=== PATIENT | female | born 1960 | race Caucasian/White ===

== ENCOUNTER 2022-06-27 11:43 | Inpatient (IN) ==
[2022-06-27] MEDS ORDERED: NS 0.9% 1000 ml BAG 1,000 ML IV ONE ×2 (12:42→13:24)
[2022-06-27 13:19] LABS: ABS Monocytes 0.6 10^3/ul (0-0.8); ABS Neutrophils 8.4 10^3/ul (1.5-7.7); Eosinophil % 0.2 %; Hematocrit 38 % (35-47); Hemoglobin 12.5 g/dL (12.0-16.0); Lymphocyte % 9.9 %; Mean Corpuscular HGB Conc 33 g/dL (31-36); Mean Corpuscular Hemoglobin 34 pg (27-31); Mean Corpuscular Volume 103 fL (80-97); Mean Platelet Volume 7.8 fL (7.4-10.4); Platelet Count 522 10^3/uL (150-450); Red Blood Count 3.72 10^6 /uL (3.70-4.87); Red Cell Distribution Width 13 % (10-15); White Blood Count 9.9 10^3/uL (3.5-10.8)
[2022-06-27 13:51] LABS: ALT 17 U/L (7-52); Alkaline Phosphatase 100 U/L (35-149); Anion Gap 12 mmol/L (2-11); Blood Urea Nitrogen 63 mg/dL (6-24); C Reactive Protein 3.89 mg/L (<8.01); CO2 Carbon Dioxide 18 mmol/L (22-32); Calcium 8.7 mg/dL (8.6-10.3); Chloride 98 mmol/L (101-111); Globulin 2.9 g/dL (2-4); Glucose 123 mg/dL (70-100); Lipase 60 U/L (11.0-82.0); Sodium 128 mmol/L (135-145); Total Protein 5.9 g/dL (6.4-8.9); eGFR CKD-EPI 13.2 (>60)
[2022-06-27 15:03] LABS: Urine Appearance Clear; Urine Bilirubin Negative (Negative); Urine Blood Negative (Negative); Urine Color Yellow; Urine Glucose Negative (Negative); Urine Ketones Negative (Negative); Urine Nitrite Negative (Negative); Urine Protein Negative (Negative); Urine Specific Gravity 1.005 (1.002-1.030); Urine Urobilinogen Negative (Negative)
[2022-06-27] MEDS ORDERED: Ondansetron 4 mg VIAL 2 MG/ML 2 ml VIAL IV PRN (16:34)
[2022-06-27] MEDS ORDERED: Thiamine 100 MG/ML 2 ml VIAL (200 mg) IM ONE (16:37)
[2022-06-27] MEDS: NS 0.9% 1000 ml BAG 1,000 ML IV SCH (16:38)
[2022-06-27] MEDS ORDERED: metroNIDAZOLE IV 500 MG/100ML 500 MG/100 ML BAG IVPB SCH (17:00)
[2022-06-27] MEDS ORDERED: Thiamine 100 MG/ML 2 ml VIAL 100 MG, Folic Acid IV 1 MG, Multiple Vitamin IV ADULT 10 M... IV ONE ×2 (17:03→17:21)
[2022-06-27 17:52] LABS: Magnesium 2.1 mg/dL (1.9-2.7)
[2022-06-27] MEDS: Multivitamins/Minerals TAB PO SCH (17:53)
[2022-06-27 18:30] LABS: INR 1.02 (0.88-1.18)
[2022-06-27] MEDS: Heparin 5000 UNITS/ML 1 mL VIAL SUBCUT SCH (22:07)
[2022-06-28] MEDS: metroNIDAZOLE IV 500 MG/100ML 500 MG/100 ML BAG IVPB SCH ×3 (02:24→17:45)
[2022-06-28] MEDS: NS 0.9% 1000 ml BAG 1,000 ML IV SCH (02:24)
[2022-06-28] MEDS: Heparin 5000 UNITS/ML 1 mL VIAL SUBCUT SCH ×3 (05:50→21:36)
[2022-06-28 06:39] LABS: Calcium 7.8 mg/dL (8.6-10.3); Creatinine, Serum 1.77 mg/dL (0.51-0.95); Magnesium 2.1 mg/dL (1.9-2.7); Phosphorus 3.6 mg/dL (2.5-5.0); eGFR CKD-EPI 31.9 (>60)
[2022-06-28] MEDS: Multivitamins/Minerals TAB PO SCH (09:52)
[2022-06-28] MEDS: Lactated Ringers 1000 ml BAG 1,000 ML IV SCH ×2 (12:11→21:40)
[2022-06-29] MEDS: metroNIDAZOLE IV 500 MG/100ML 500 MG/100 ML BAG IVPB SCH ×2 (01:48→10:11)
[2022-06-29] MEDS: Heparin 5000 UNITS/ML 1 mL VIAL SUBCUT SCH (06:19)
[2022-06-29 06:41] LABS: Creatinine, Serum 0.98 mg/dL (0.51-0.95); Potassium 3.9 mmol/L (3.5-5.0); eGFR CKD-EPI 64.9 (>60)
[2022-06-29] MEDS: Multivitamins/Minerals TAB PO SCH (10:16)
[2022-06-29 10:38] VITALS: BP 111/74
== END 2022-06-29 12:00 | disposition home or self-care (01) | DRG 683 ==
LOC: EDHOLD 11:43 → ED 11:43 → OBSVTOIN 16:32 → MED 18:19
PROVIDERS: ADMIT Internal Medicine; ATTEND Internal Medicine

== ENCOUNTER 2022-07-26 13:49 | Inpatient (IN) ==
[2022-07-26 17:16] LABS: ABS Lymphocytes 1.6 10^3/ul (1.0-4.8); ABS Monocytes 0.9 10^3/ul (0-0.8); ABS Neutrophils 6.3 10^3/ul (1.5-7.7); Eosinophil % 0.2 %; Hematocrit 35 % (35-47); Hemoglobin 11.2 g/dL (12.0-16.0); Lymphocyte % 17.9 %; Mean Corpuscular Hemoglobin 33 pg (27-31); Mean Corpuscular Hgb Conc 33 g/dL (31-36); Mean Corpuscular Volume 102 fL (80-97); Mean Platelet Volume 7.4 fL (7.4-10.4); Platelet Count 515 10^3/uL (150-450); Red Blood Count 3.37 10^6 /uL (3.70-4.87); Red Cell Distribution Width 14 % (10-15); White Blood Count 8.8 10^3/uL (3.5-10.8)
[2022-07-26 17:33] LABS: ALT 17 U/L (7-52); AST 32 U/L (13-39); Albumin 3.4 g/dL (3.2-5.2); Albumin/Globulin Ratio 1.1 (1-3); Alkaline Phosphatase 110 U/L (35-149); Anion Gap 9 mmol/L (2-11); Blood Urea Nitrogen 11 mg/dL (6-24); C Reactive Protein 9.09 mg/L (<8.01); CO2 Carbon Dioxide 26 mmol/L (22-32); Calcium 8.8 mg/dL (8.6-10.3); Chloride 99 mmol/L (101-111); Creatinine, Serum 0.92 mg/dL (0.51-0.95); Globulin 3.1 g/dL (2-4); Glucose 116 mg/dL (70-100); Potassium 3.9 mmol/L (3.5-5.0); Sodium 134 mmol/L (135-145); Total Protein 6.5 g/dL (6.4-8.9)
[2022-07-26] MEDS ORDERED: Iohexol 300 (CONTRAST) 10 ML SDV IV ONE (17:55)
[2022-07-26 21:13] LABS: Magnesium 1.8 mg/dL (1.9-2.7)
[2022-07-26] MEDS ORDERED: Magnesium Sulfate 2 gm BAG 2 GM/50 ML BAG IVPB ONE (21:18)
[2022-07-26] MEDS ORDERED: NS 0.9% 1000 ml BAG 1,000 ML IV SCH (21:30)
[2022-07-26 22:03] LABS: Alcohol, S < 13 mg/dL (<13); Lipase 14 U/L (11.0-82.0)
[2022-07-27 04:56] LABS: Vitamin B12 302 pg/mL (180-914)
[2022-07-27 06:27] LABS: Hematocrit 28 % (35-47); Hemoglobin 9.8 g/dL (12.0-16.0); Mean Corpuscular Hemoglobin 36 pg (27-31); Mean Corpuscular Hgb Conc 35 g/dL (31-36); Mean Corpuscular Volume 103 fL (80-97); Mean Platelet Volume 7.6 fL (7.4-10.4); Platelet Count 358 10^3/uL (150-450); Red Blood Count 2.76 10^6 /uL (3.70-4.87); Red Cell Distribution Width 14 % (10-15)
[2022-07-27 06:30] LABS: ABS Eosinophils 0.1 10^3/ul (0-0.6); ABS Lymphocytes 1.1 10^3/ul (1.0-4.8); ABS Monocytes 0.7 10^3/ul (0-0.8); ABS Neutrophils 5.1 10^3/ul (1.5-7.7); Eosinophil % 0.8 %; Lymphocyte % 15.2 %
[2022-07-27 07:11] LABS: Calcium 8.2 mg/dL (8.6-10.3); Creatinine, Serum 0.75 mg/dL (0.51-0.95); Magnesium 2.2 mg/dL (1.9-2.7); Potassium 3.6 mmol/L (3.5-5.0); eGFR CKD-EPI 89.4 (>60)
[2022-07-27] MEDS ORDERED: Omeprazole 20 mg CAP (NF) PO SCH (09:00)
[2022-07-27] MEDS ORDERED: Lactated Ringers 1000 ml BAG 1,000 ML IV ONE (13:35)
[2022-07-27] MEDS ORDERED: PEG 3000 GI LAVAGE 1 GALLON PO ONE (13:52)
[2022-07-27] MEDS: Ondansetron 4 mg VIAL 2 MG/ML 2 ml VIAL IV PRN ×2 (16:15→23:04)
[2022-07-27] MEDS: Enoxaparin 40 MG/0.4 ML SYR SUBCUT SCH (18:11)
[2022-07-27] MEDS: Pantoprazole VIAL 40 MG VIAL IV SCH (18:11)
[2022-07-27] MEDS: Morphine 2 MG/ML SYRINGE IV PRN (23:04)
[2022-07-28 00:11] LABS: INR 1.15 (0.88-1.18)
[2022-07-28 06:13] LABS: ABS Lymphocytes 1.2 10^3/ul (1.0-4.8); ABS Monocytes 0.8 10^3/ul (0-0.8); ABS Neutrophils 6.2 10^3/ul (1.5-7.7); Eosinophil % 0.5 %; Hematocrit 30 % (35-47); Hemoglobin 10.2 g/dL (12.0-16.0); Lymphocyte % 14.5 %; Mean Corpuscular Hemoglobin 34 pg (27-31); Mean Corpuscular Hgb Conc 34 g/dL (31-36); Mean Corpuscular Volume 101 fL (80-97); Mean Platelet Volume 7.8 fL (7.4-10.4); Platelet Count 372 10^3/uL (150-450); Red Blood Count 2.99 10^6 /uL (3.70-4.87); Red Cell Distribution Width 14 % (10-15); White Blood Count 8.3 10^3/uL (3.5-10.8)
[2022-07-28 06:38] LABS: Calcium 8.2 mg/dL (8.6-10.3); Creatinine, Serum 0.8 mg/dL (0.51-0.95); Magnesium 1.9 mg/dL (1.9-2.7); eGFR CKD-EPI 82.7 (>60)
[2022-07-28] MEDS: Morphine 2 MG/ML SYRINGE IV PRN ×2 (07:41→17:03)
[2022-07-28] MEDS: Ondansetron 4 mg VIAL 2 MG/ML 2 ml VIAL IV PRN ×2 (07:41→17:03)
[2022-07-28] MEDS ORDERED: PEG 3000 GI LAVAGE 1 GALLON PO ONE (10:05)
[2022-07-28] MEDS ORDERED: Dextrose 50% Syringe 50 ml 25 GM/50 ML SYRINGE IV PUSH PRN (10:11)
[2022-07-28] MEDS: Enoxaparin 40 MG/0.4 ML SYR SUBCUT SCH (17:03)
[2022-07-28] MEDS: Pantoprazole VIAL 40 MG VIAL IV SCH (17:03)
[2022-07-28] MEDS: Lactated Ringers 1000 ml BAG 1,000 ML IV SCH (22:32)
[2022-07-29 05:56] LABS: ABS Lymphocytes 1.3 10^3/ul (1.0-4.8); ABS Monocytes 0.7 10^3/ul (0-0.8); ABS Neutrophils 5.6 10^3/ul (1.5-7.7); Eosinophil % 0.6 %; Hematocrit 28 % (35-47); Hemoglobin 9.6 g/dL (12.0-16.0); Mean Corpuscular Hemoglobin 34 pg (27-31); Mean Corpuscular Hgb Conc 34 g/dL (31-36); Mean Corpuscular Volume 101 fL (80-97); Platelet Count 354 10^3/uL (150-450); Red Cell Distribution Width 14 % (10-15); White Blood Count 7.6 10^3/uL (3.5-10.8)
[2022-07-29 06:13] LABS: Calcium 7.9 mg/dL (8.6-10.3); Creatinine, Serum 0.84 mg/dL (0.51-0.95); Magnesium 1.7 mg/dL (1.9-2.7); Potassium 3.5 mmol/L (3.5-5.0)
[2022-07-29] MEDS: Lactated Ringers 1000 ml BAG 1,000 ML IV SCH ×2 (06:33→19:45)
[2022-07-29] MEDS: Morphine 2 MG/ML SYRINGE IV PRN ×2 (10:54→18:35)
[2022-07-29] MEDS: Ondansetron 4 mg VIAL 2 MG/ML 2 ml VIAL IV PRN (10:54)
[2022-07-29] MEDS ORDERED: Magnesium Sulfate 2 gm BAG 2 GM/50 ML BAG IVPB ONE (12:07)
[2022-07-29] MEDS ORDERED: Propofol 10 MG/ML 20 ML BTL ONE (15:43)
[2022-07-29] MEDS ORDERED: Lidocaine 2% PF 5 ML VIAL ONE (15:43)
[2022-07-29] MEDS: Enoxaparin 40 MG/0.4 ML SYR SUBCUT SCH (18:20)
[2022-07-29] MEDS: Pantoprazole VIAL 40 MG VIAL IV SCH (18:21)
[2022-07-30] MEDS: Morphine 2 MG/ML SYRINGE IV PRN ×4 (02:25→21:01)
[2022-07-30] MEDS: Lactated Ringers 1000 ml BAG 1,000 ML IV SCH (03:48)
[2022-07-30 06:06] LABS: ABS Eosinophils 0.1 10^3/ul (0-0.6); ABS Lymphocytes 1.3 10^3/ul (1.0-4.8); ABS Monocytes 0.8 10^3/ul (0-0.8); ABS Neutrophils 6.4 10^3/ul (1.5-7.7); Eosinophil % 0.6 %; Hematocrit 32 % (35-47); Hemoglobin 10.6 g/dL (12.0-16.0); Lymphocyte % 15.6 %; Mean Corpuscular Hemoglobin 34 pg (27-31); Mean Corpuscular Hgb Conc 33 g/dL (31-36); Mean Corpuscular Volume 102 fL (80-97); Nucleated Red Blood Cells % 0.1; Platelet Count 376 10^3/uL (150-450); Red Blood Count 3.17 10^6 /uL (3.70-4.87); Red Cell Distribution Width 14 % (10-15); White Blood Count 8.5 10^3/uL (3.5-10.8)
[2022-07-30 06:34] LABS: Albumin 2.7 g/dL (3.2-5.2); Albumin/Globulin Ratio 1.1 (1-3); Calcium 8.3 mg/dL (8.6-10.3); Creatinine, Serum 0.83 mg/dL (0.51-0.95); Globulin 2.5 g/dL (2-4); Magnesium 1.8 mg/dL (1.9-2.7); Potassium 3.7 mmol/L (3.5-5.0); Total Bilirubin 0.9 mg/dL (0.2-1.0); Total Protein 5.2 g/dL (6.4-8.9); eGFR CKD-EPI 79.2 (>60)
[2022-07-30] MEDS ORDERED: Magnesium Sulfate IV 1GM/100ML 1 GM/100 ML BAG IV ONE ×2 (07:04→07:45)
[2022-07-30] MEDS ORDERED: Lactated Ringers 1000 ml BAG 1,000 ML IV SCH ×2 (08:00→08:01)
[2022-07-30] MEDS: Pantoprazole VIAL 40 MG VIAL IV SCH (16:13)
[2022-07-30] MEDS: Enoxaparin 40 MG/0.4 ML SYR SUBCUT SCH (16:13)
[2022-07-31 06:20] LABS: ABS Eosinophils 0.1 10^3/uL (0.0-0.5); ABS Lymphocytes 0.7 10^3/uL (1.0-4.8); ABS Monocytes 1.1 10^3/uL (0.0-0.9); ABS Neutrophils 9.1 10^3/uL (1.5-7.6); Eosinophil % 0.5 %; Hematocrit 27.9 % (35-45); Hemoglobin 9.6 g/dL (11.5-14.3); Lymphocyte % 6.2 %; Mean Corpuscular Hemoglobin 34.9 pg (27-33); Mean Corpuscular Hgb Conc 34.5 g/dL (31-36); Mean Corpuscular Volume 101.1 fL (80-97); Mean Platelet Volume 7.9 fL (7.5-11.2); Platelet Count 305 10^3/uL (150-450); Red Blood Count 2.76 10^6/uL (3.63-4.92); Red Cell Distribution Width 13.9 % (12-17)
[2022-07-31 06:46] LABS: Calcium 7.9 mg/dL (8.6-10.3); Creatinine, Serum 0.77 mg/dL (0.51-0.95); Magnesium 1.7 mg/dL (1.9-2.7); Potassium 3.5 mmol/L (3.5-5.0); eGFR CKD-EPI 86.6 (>60)
[2022-07-31] MEDS: Morphine 2 MG/ML SYRINGE IV PRN ×5 (07:32→23:14)
[2022-07-31] MEDS: Enoxaparin 40 MG/0.4 ML SYR SUBCUT SCH (14:38)
[2022-07-31] MEDS: Pantoprazole VIAL 40 MG VIAL IV SCH (17:16)
[2022-07-31 17:58] LABS: Carcinoembryonic Antigen 1.8 ng/mL (0.1-5.0)
[2022-08-01] MEDS: Lactated Ringers 1000 ml BAG 1,000 ML IV SCH ×2 (00:17→23:11)
[2022-08-01] MEDS ORDERED: Lactated Ringers 1000 ml BAG 1,000 ML IV SCH (06:00)
[2022-08-01] MEDS ORDERED: Buffered Lidocaine 1% SYRIN 1 ml INTRADERM ONE (06:00)
[2022-08-01] MEDS: Morphine 2 MG/ML SYRINGE IV PRN ×3 (06:16→20:14)
[2022-08-01 06:28] LABS: Activated Partial Thrombo Time 32.2 seconds (26.0-38.0); INR 1.33 (0.88-1.18)
[2022-08-01] MEDS ORDERED: Ertapenem 1 GM in NS 0.9% 50 ML IVPB ONE (13:30)
[2022-08-01] MEDS ORDERED: Bupivacaine 0.5% SDV PF 30ML VIAL ONE (13:41)
[2022-08-01] MEDS ORDERED: fentaNYL 250 mcg/5 ml 50 MCG/ML 5 ml VIAL (250 MCG) ONE (14:01)
[2022-08-01] MEDS ORDERED: Propofol 10 MG/ML 20 ML BTL ONE (14:01)
[2022-08-01] MEDS ORDERED: Rocuronium 50 mg VIAL 10 mg/ml 5 ml VIAL (50 mg) ONE ×2 (14:01→15:10)
[2022-08-01] MEDS ORDERED: ceFAZolin VIAL VIAL ONE (14:38)
[2022-08-01] MEDS ORDERED: Phenylephrine IV 10 MG/ML 1 ml VIAL ONE (16:06)
[2022-08-01] MEDS ORDERED: Albumin Human 25% 25 GM/100 ML BTL IV ONE (17:11)
[2022-08-01] MEDS ORDERED: Calcium CHLORIDE 10% SYRINGE 1 GM/10 ML ONE (17:37)
[2022-08-01] MEDS ORDERED: Naloxone 0.4 mg VIAL 0.4 mg/ml 1 ml VIAL IV PUSH PRN (19:54)
[2022-08-01] MEDS ORDERED: Zosyn per Pharmacy NOTE FOLLOW UP PRN (19:56)
[2022-08-01] MEDS ORDERED: ZOSYN 3.375 GM x ONE DOSE over 30 miuntes IV (20:00)
[2022-08-01] MEDS ORDERED: Morphine 4 MG/ML VIAL (1 ml) ONE (20:13)
[2022-08-01] MEDS: Morphine PCA ADULT 5 MG/ML 30 ML PCA SCH (20:37)
[2022-08-01 20:52] LABS: Hematocrit 28.3 % (35-45); Hemoglobin 9.3 g/dL (11.5-14.3); Mean Corpuscular Hgb Conc 32.9 g/dL (31-36); Mean Corpuscular Volume 103.5 fL (80-97); Mean Platelet Volume 7.5 fL (7.5-11.2); Platelet Count 376 10^3/uL (150-450); Red Blood Count 2.74 10^6/uL (3.63-4.92); Red Cell Distribution Width 13.9 % (12-17); White Blood Count 2.4 10^3/uL (3.8-11.8)
[2022-08-01 20:58] LABS: INR 1.79 (0.88-1.18)
[2022-08-01 21:14] LABS: Calcium 8.5 mg/dL (8.6-10.3); Creatinine, Serum 0.78 mg/dL (0.51-0.95); Magnesium 1.1 mg/dL (1.9-2.7); Potassium 2.8 mmol/L (3.5-5.0); eGFR CKD-EPI 85.3 (>60)
[2022-08-01] MEDS ORDERED: Magnesium Sulf 4 GM/100 ML IV 4,000 MG/100 ML BAG IVPB ONE (21:50)
[2022-08-01] MEDS ORDERED: KCL 20 MEQ/100 ML IVPREMIX 20 MEQ/100 ML BAG IV SCH (22:00)
[2022-08-01 22:13] LABS: Phosphorus 4.3 mg/dL (2.5-5.0)
[2022-08-01 23:05] LABS: ABS Lymphocytes 0.3 10^3/uL (1.0-4.8); ABS Monocytes 0.3 10^3/uL (0.0-0.9); ABS Neutrophils 1.4 10^3/uL (1.5-7.6); ABS Nucleated RBC 0.01 10^3/ul; Hematocrit 28.7 % (35-45); Hemoglobin 9.5 g/dL (11.5-14.3); Lymphocyte % 15.1 %; Mean Corpuscular Hemoglobin 34.3 pg (27-33); Mean Corpuscular Hgb Conc 33.2 g/dL (31-36); Mean Corpuscular Volume 103.5 fL (80-97); Mean Platelet Volume 8.2 fL (7.5-11.2); Nucleated Red Blood Cells % 0.3 /100 WBC (0.0-0.4); Platelet Count 290 10^3/uL (150-450); Red Blood Count 2.78 10^6/uL (3.63-4.92); Red Cell Distribution Width 13.9 % (12-17)
[2022-08-01] MEDS: Enoxaparin 40 MG/0.4 ML SYR SUBCUT SCH (23:14)
[2022-08-01 23:43] LABS: Blood Urea Nitrogen 6 mg/dL (6-24); CO2 Carbon Dioxide 21 mmol/L (22-32); Calcium 8.3 mg/dL (8.6-10.3); Chloride 108 mmol/L (101-111); Creatinine, Serum 0.75 mg/dL (0.51-0.95); Glucose 151 mg/dL (70-100); Sodium 140 mmol/L (135-145); eGFR CKD-EPI 89.4 (>60)
[2022-08-01] MEDS: Pantoprazole VIAL 40 MG VIAL IV SCH (23:51)
[2022-08-02] MEDS ORDERED: PHENYLEPHRINE DRIP IVPREMIX 50 MG/250 ML BAG IV SCH
[2022-08-02 00:03] LABS: Anion Gap 11 mmol/L (2-11)
[2022-08-02] MEDS ORDERED: ZOSYN 3.375 GM x ONE DOSE over 30 miuntes IV (01:00)
[2022-08-02] MEDS: Acetaminophen IV 1 GM/100ML 1,000 MG/100 ML BAG IV PRN (01:07)
[2022-08-02 01:42] LABS: Magnesium 1.1 mg/dL (1.9-2.7); Phosphorus 4.3 mg/dL (2.5-5.0); Potassium Redraw 3.2 mmol/L (3.5-5.0)
[2022-08-02] MEDS ORDERED: Magnesium Sulf 4 GM/100 ML IV 4,000 MG/100 ML BAG IVPB ONE (01:45)
[2022-08-02] MEDS: KCL 20 MEQ/100 ML IVPREMIX 20 MEQ/100 ML BAG IV SCH ×2 (02:24→04:44)
[2022-08-02] MEDS: Phenylephrine DRIP 0.2 MG/ML in NS 0.9% 250 ML (PHA mix) IV SCH ×2 (03:30→21:03)
[2022-08-02] MEDS ORDERED: Lactated Ringers 1000 ml BAG 500 ML IV ONE (04:53)
[2022-08-02] MEDS: ZOSYN 3.375 GM Q8H per EXTENDED INFUSION IV SCH ×3 (05:52→22:09)
[2022-08-02 09:36] LABS: Hematocrit 24.7 % (35-45); Hemoglobin 8.5 g/dL (11.5-14.3); Mean Corpuscular Hgb Conc 34.4 g/dL (31-36); Mean Corpuscular Volume 101.8 fL (80-97); Mean Platelet Volume 8.2 fL (7.5-11.2); Platelet Count 370 10^3/uL (150-450); Red Blood Count 2.43 10^6/uL (3.63-4.92); Red Cell Distribution Width 14.1 % (12-17); White Blood Count 10.8 10^3/uL (3.8-11.8)
[2022-08-02 10:04] LABS: Albumin/Globulin Ratio 1.3 (1-3); Calcium 7.7 mg/dL (8.6-10.3); Creatinine, Serum 1.14 mg/dL (0.51-0.95); Globulin 1.6 g/dL (2-4); Magnesium 2.3 mg/dL (1.9-2.7); Potassium 3.6 mmol/L (3.5-5.0); Total Bilirubin 1.1 mg/dL (0.2-1.0); Total Protein 3.6 g/dL (6.4-8.9); eGFR CKD-EPI 54.1 (>60)
[2022-08-02] MEDS ORDERED: Morphine 2 MG/ML SYRINGE IV ONE (10:17)
[2022-08-02] MEDS: Lactated Ringers 1000 ml BAG 1,000 ML IV SCH ×2 (10:34→11:45)
[2022-08-02] MEDS: Thiamine 100 MG/ML 2 ml VIAL 100 MG in NS 0.9% 50 ML 50 ML IV SCH (10:46)
[2022-08-02 10:51] LABS: ABS Lymphocytes 0.6 10^3/uL (1.0-4.8); ABS Monocytes 0.5 10^3/uL (0.0-0.9); ABS Neutrophils 9.7 10^3/uL (1.5-7.6); ABS Nucleated RBC 0.01 10^3/ul; Lymphocyte % 5.2 %; Macrocytosis 1+; Polychromasia 1+
[2022-08-02 15:46] LABS: Calcium 7.8 mg/dL (8.6-10.3); Creatinine, Serum 1.23 mg/dL (0.51-0.95); Magnesium 2.1 mg/dL (1.9-2.7); Potassium 3.7 mmol/L (3.5-5.0); eGFR CKD-EPI 49.4 (>60)
[2022-08-02] MEDS: Enoxaparin 40 MG/0.4 ML SYR SUBCUT SCH (15:49)
[2022-08-02] MEDS ORDERED: Lactated Ringers 1000 ml BAG 1,000 ML IV ONE (15:55)
[2022-08-02] MEDS: Pantoprazole VIAL 40 MG VIAL IV SCH (17:12)
[2022-08-03 04:32] LABS: ABS Lymphocytes 0.9 10^3/uL (1.0-4.8); ABS Monocytes 1.2 10^3/uL (0.0-0.9); ABS Neutrophils 19.8 10^3/uL (1.5-7.6); ABS Nucleated RBC 0.01 10^3/ul; Eosinophil % 0.1 %; Hematocrit 20.2 % (35-45); Hemoglobin 6.9 g/dL (11.5-14.3); Lymphocyte % 4.1 %; Mean Corpuscular Hemoglobin 34.1 pg (27-33); Mean Corpuscular Hgb Conc 33.9 g/dL (31-36); Mean Corpuscular Volume 100.7 fL (80-97); Mean Platelet Volume 7.8 fL (7.5-11.2); Platelet Count 318 10^3/uL (150-450); Red Blood Count 2.01 10^6/uL (3.63-4.92); White Blood Count 21.9 10^3/uL (3.8-11.8)
[2022-08-03 04:57] LABS: Calcium 7.3 mg/dL (8.6-10.3); Creatinine, Serum 1.46 mg/dL (0.51-0.95); Magnesium 1.9 mg/dL (1.9-2.7); Potassium 3.7 mmol/L (3.5-5.0); eGFR CKD-EPI 40.2 (>60)
[2022-08-03] MEDS: ZOSYN 3.375 GM Q8H per EXTENDED INFUSION IV SCH ×3 (05:57→22:12)
[2022-08-03] MEDS: Morphine PCA ADULT 5 MG/ML 30 ML PCA SCH (07:14)
[2022-08-03] MEDS ORDERED: HYDROmorphone 1 MG/1 ML SYRINGE IV ONE (07:38)
[2022-08-03] MEDS ORDERED: Lactated Ringers 1000 ml BAG 1,000 ML IV ONE ×4 (08:20→15:10)
[2022-08-03 08:56] LABS: INR 1.82 (0.88-1.18)
[2022-08-03] MEDS ORDERED: Phytonadione IV (Adult) 5 MG in NS 0.9% 50 ML 50 ML IV ONE (10:19)
[2022-08-03 11:10] LABS: Albumin 1.8 g/dL (3.2-5.2); Albumin/Globulin Ratio 1.3 (1-3); Globulin 1.4 g/dL (2-4); Total Protein 3.2 g/dL (6.4-8.9)
[2022-08-03] MEDS: Thiamine 100 MG/ML 2 ml VIAL 100 MG in NS 0.9% 50 ML 50 ML IV SCH (11:41)
[2022-08-03 13:00] LABS: Hematocrit 29.3 % (35-45); Mean Corpuscular Hemoglobin 31.7 pg (27-33); Mean Corpuscular Hgb Conc 34.1 g/dL (31-36); Mean Corpuscular Volume 92.8 fL (80-97); Mean Platelet Volume 7.5 fL (7.5-11.2); Platelet Count 326 10^3/uL (150-450); Red Blood Count 3.15 10^6/uL (3.63-4.92); Red Cell Distribution Width 21.9 % (12-17); White Blood Count 1.6 10^3/uL (3.8-11.8)
[2022-08-03 13:40] LABS: RBC Morphology Normal (Normal)
[2022-08-03 13:41] LABS: ABS Lymphocytes 0.2 10^3/uL (1.0-4.8); ABS Monocytes 0.1 10^3/uL (0.0-0.9); ABS Neutrophils 1.2 10^3/uL (1.5-7.6); Eosinophil % 0.1 %; Lymphocyte % 15.6 %; Nucleated Red Blood Cells % 0.2 /100 WBC (0.0-0.4)
[2022-08-03] MEDS ORDERED: Iodixanol (CONTRAST) 320 MG/ML 100 ML SDV IV ONE (14:10)
[2022-08-03] MEDS: Albumin Human 25% 50 GM/200 ML BTL IV SCH ×2 (14:48→20:44)
[2022-08-03] MEDS: Enoxaparin 40 MG/0.4 ML SYR SUBCUT SCH (15:34)
[2022-08-03] MEDS: Pantoprazole VIAL 40 MG VIAL IV SCH (16:18)
[2022-08-03 17:53] LABS: Hematocrit 22.4 % (35-45); Hemoglobin 7.7 g/dL (11.5-14.3); Mean Corpuscular Hemoglobin 31.7 pg (27-33); Mean Corpuscular Hgb Conc 34.3 g/dL (31-36); Mean Corpuscular Volume 92.6 fL (80-97); Mean Platelet Volume 7.6 fL (7.5-11.2); Platelet Count 220 10^3/uL (150-450); Red Blood Count 2.42 10^6/uL (3.63-4.92); White Blood Count 1.9 10^3/uL (3.8-11.8)
[2022-08-03] MEDS: HYDROmorphone 1 MG/1 ML SYRINGE IV SLOW PU PRN (20:42)
[2022-08-04 01:29] LABS: Hematocrit 20.7 % (35-45); Hemoglobin 6.9 g/dL (11.5-14.3); Mean Corpuscular Hemoglobin 30.4 pg (27-33); Mean Corpuscular Hgb Conc 33.6 g/dL (31-36); Mean Corpuscular Volume 90.4 fL (80-97); Mean Platelet Volume 7.4 fL (7.5-11.2); Platelet Count 193 10^3/uL (150-450); Red Blood Count 2.29 10^6/uL (3.63-4.92); Red Cell Distribution Width 23.2 % (12-17); White Blood Count 4.6 10^3/uL (3.8-11.8)
[2022-08-04 03:45] LABS: ABS Lymphocytes 0.3 10^3/uL (1.0-4.8); ABS Monocytes 0.1 10^3/uL (0.0-0.9); ABS Neutrophils 4.2 10^3/uL (1.5-7.6); Anisocytosis 2+; Eosinophil % 0.1 %; Nucleated Red Blood Cells % 0.1 /100 WBC (0.0-0.4); Polychromasia 1+
[2022-08-04] MEDS: HYDROmorphone 1 MG/1 ML SYRINGE IV SLOW PU PRN (04:28)
[2022-08-04 09:45] LABS: Hematocrit 27.5 % (35-45); Hemoglobin 9.5 g/dL (11.5-14.3); Mean Corpuscular Hemoglobin 30.7 pg (27-33); Mean Corpuscular Hgb Conc 34.4 g/dL (31-36); Mean Corpuscular Volume 89.2 fL (80-97); Mean Platelet Volume 7.8 fL (7.5-11.2); Platelet Count 221 10^3/uL (150-450); Red Blood Count 3.08 10^6/uL (3.63-4.92); Red Cell Distribution Width 23.2 % (12-17); White Blood Count 11.5 10^3/uL (3.8-11.8)
[2022-08-04] MEDS: Albumin Human 25% 50 GM/200 ML BTL IV SCH ×3 (10:02→19:56)
[2022-08-04] MEDS: Acetaminophen IV 1 GM/100ML 1,000 MG/100 ML BAG IV PRN (10:03)
[2022-08-04 10:20] LABS: Albumin/Globulin Ratio 3.3 (1-3); Calcium 7.9 mg/dL (8.6-10.3); Creatinine, Serum 1.58 mg/dL (0.51-0.95); Globulin 0.9 g/dL (2-4); Potassium 3.3 mmol/L (3.5-5.0); Total Bilirubin 4.1 mg/dL (0.2-1.0); Total Protein 3.9 g/dL (6.4-8.9); eGFR CKD-EPI 36.6 (>60)
[2022-08-04] MEDS ORDERED: Dextrose 50% Syringe 50 ml 25 GM/50 ML SYRINGE IV PUSH PRN (10:39)
[2022-08-04] MEDS ORDERED: Potassium Chloride LIQUID 20 MEQ/15 ML LIQUID PO ONE (10:40)
[2022-08-04] MEDS ORDERED: Magnesium Sulfate IV 1GM/100ML 1 GM/100 ML BAG IV ONE (10:40)
[2022-08-04] MEDS: D10W IV FLUID 250 ML IV PRN ×2 (10:40→22:15)
[2022-08-04] MEDS ORDERED: HYDROmorphone 1 MG/1 ML SYRINGE IV SLOW PU PRN (10:58)
[2022-08-04] MEDS ORDERED: HYDROmorphone 0.5 MG/0.5 ML SYRINGE ONE (11:00)
[2022-08-04 11:08] LABS: Burr Cells 1+; Polychromasia 1+; Tear Drop Cells 1+
[2022-08-04 11:09] LABS: Anisocytosis 2+; Dohle Bodies Present
[2022-08-04 11:10] LABS: ABS Lymphocytes 0.3 10^3/uL (1.0-4.8); ABS Monocytes 0.2 10^3/uL (0.0-0.9); ABS Nucleated RBC 0.01 10^3/ul; Eosinophil % 0.2 %; Nucleated Red Blood Cells % 0.1 /100 WBC (0.0-0.4)
[2022-08-04 11:16] LABS: Magnesium 1.8 mg/dL (1.9-2.7)
[2022-08-04] MEDS: Thiamine 100 MG/ML 2 ml VIAL 100 MG in NS 0.9% 50 ML 50 ML IV SCH (11:28)
[2022-08-04] MEDS: KCL 20 MEQ/100 ML IVPREMIX 20 MEQ/100 ML BAG IV SCH ×2 (12:06→14:20)
[2022-08-04 12:54] LABS: Activated Partial Thrombo Time 61.1 seconds (26.0-38.0); INR 1.53 (0.88-1.18)
[2022-08-04] MEDS ORDERED: Lorazepam PYXIS KEY PRN (13:29)
[2022-08-04] MEDS ORDERED: LORazepam 2 mg VIAL 1 ml IV PUSH SCH (14:00)
[2022-08-04] MEDS: Enoxaparin 40 MG/0.4 ML SYR SUBCUT SCH (14:27)
[2022-08-04] MEDS ORDERED: Furosemide 20 mg/2 ml IV VIAL IV ONE (14:43)
[2022-08-04] MEDS: Pantoprazole VIAL 40 MG VIAL IV SCH (15:53)
[2022-08-04] MEDS: HYDROmorphone 0.5 MG/0.5 ML SYRINGE IV SLOW PU PRN ×2 (17:31→20:17)
[2022-08-04] MEDS ORDERED: Furosemide 40 mg/4 ml IV VIAL IV SLOW PU ONE (21:00)
[2022-08-04] MEDS ORDERED: Albuterol/Ipratropium NEB.SOL (2.5/0.5 MG) 3 ML NEB.SOLN INH PRN (22:22)
[2022-08-05] MEDS ORDERED: Acetylcysteine INHALATION SOL 200 MG/ML NEB.SOLN 10 ML INH ONE (00:11)
[2022-08-05] MEDS: Acetylcysteine INH SOL (RT) 200 MG/ML 4 ML VIAL INH ONE ×2 (01:15→01:16)
[2022-08-05] MEDS ORDERED: Furosemide 40 mg/4 ml IV VIAL IV SLOW PU ONE (01:36)
[2022-08-05] MEDS: Furosemide 40 mg/4 ml IV VIAL ONE ×2 (01:47→02:01)
[2022-08-05 04:24] LABS: Hemoglobin 8.3 g/dL (11.5-14.3); Mean Corpuscular Hemoglobin 30.6 pg (27-33); Mean Corpuscular Hgb Conc 34.6 g/dL (31-36); Mean Corpuscular Volume 88.6 fL (80-97); Mean Platelet Volume 7.7 fL (7.5-11.2); Platelet Count 159 10^3/uL (150-450); Red Blood Count 2.71 10^6/uL (3.63-4.92); Red Cell Distribution Width 23.8 % (12-17); White Blood Count 10.4 10^3/uL (3.8-11.8)
[2022-08-05 04:45] LABS: ABS Lymphocytes 0.4 10^3/uL (1.0-4.8); ABS Neutrophils 9.9 10^3/uL (1.5-7.6); ABS Nucleated RBC 0.01 10^3/ul; Anisocytosis 2+; Eosinophil % 0.3 %; Lymphocyte % 3.6 %; Nucleated Red Blood Cells % 0.1 /100 WBC (0.0-0.4)
[2022-08-05 04:46] LABS: Polychromasia 1+
[2022-08-05 05:16] LABS: Albumin 4.1 g/dL (3.2-5.2); Albumin/Globulin Ratio 5.9 (1-3); Calcium 8.5 mg/dL (8.6-10.3); Creatinine, Serum 1.7 mg/dL (0.51-0.95); Globulin 0.7 g/dL (2-4); Phosphorus 2.9 mg/dL (2.5-5.0); Potassium 2.9 mmol/L (3.5-5.0); Total Bilirubin 3.6 mg/dL (0.2-1.0); Total Protein 4.8 g/dL (6.4-8.9); eGFR CKD-EPI 33.5 (>60)
[2022-08-05] MEDS ORDERED: D5W NS 0.9% 40Meq KCL 1000 ml 1,000 ML IV SCH (06:00)
[2022-08-05] MEDS: Thiamine 100 MG/ML 2 ml VIAL 100 MG in NS 0.9% 50 ML 50 ML IV SCH (09:20)
[2022-08-05] MEDS: KCL 20 MEQ/100 ML IVPREMIX 20 MEQ/100 ML BAG IV SCH ×5 (09:20→17:25)
[2022-08-05] MEDS: Albumin Human 25% 50 GM/200 ML BTL IV SCH (09:24)
[2022-08-05] MEDS: HYDROmorphone 0.5 MG/0.5 ML SYRINGE IV SLOW PU PRN (09:27)
[2022-08-05] MEDS ORDERED: Potassium Chlor 20 meq TAB.ER PO ONE (12:01)
[2022-08-05 12:26] LABS: Hematocrit 25.3 % (35-45); Hemoglobin 8.7 g/dL (11.5-14.3)
[2022-08-05] MEDS ORDERED: Furosemide 40 mg/4 ml IV VIAL IV ONE (12:33)
[2022-08-05] MEDS ORDERED: Morphine 4 MG/ML VIAL (1 ml) ONE (12:41)
[2022-08-05 13:05] LABS: Calcium 8.8 mg/dL (8.6-10.3); Creatinine, Serum 1.74 mg/dL (0.51-0.95); Magnesium 1.9 mg/dL (1.9-2.7); Potassium 3.4 mmol/L (3.5-5.0); eGFR CKD-EPI 32.6 (>60)
[2022-08-05] MEDS: Enoxaparin 30 MG/0.3 ML SYR SUBCUT SCH (13:43)
[2022-08-05] MEDS ORDERED: Magnesium Sulfate 2 gm BAG 2 GM/50 ML BAG IVPB ONE (15:26)
[2022-08-05] MEDS ORDERED: Furosemide 100 mg/10 ml IV VIAL IV ONE (15:45)
[2022-08-05] MEDS: Pantoprazole VIAL 40 MG VIAL IV SCH (15:57)
[2022-08-05] MEDS ORDERED: Bumetanide IV 0.25 MG/ML 4 ml VIAL (1 mg) IV SLOW PU SCH (16:00)
[2022-08-05] MEDS: TPN 24 HR with Dextrose 50% Water 500 ML, Amino Acid Infusion 10% 850 ML, Sterile Water... CENT\\PICC SCH (16:05)
[2022-08-05] MEDS ORDERED: KCL 20 MEQ/100 ML IVPREMIX 20 MEQ/100 ML BAG ONE (16:07)
[2022-08-05] MEDS ORDERED: Bumetanide IV 0.25 MG/ML 4 ml VIAL (1 mg) ONE ×2 (16:07→16:09)
[2022-08-05] MEDS ORDERED: Bumetanide IV 0.25 MG/ML 4 ml VIAL (1 mg) IV SLOW PU ONE (16:08)
[2022-08-05] MEDS ORDERED: TPN 24 HR with Dextrose 50% Water 500 ML, Amino Acid Infusion 10% 850 ML, Sterile Water... CENT\\PICC SCH (17:00)
[2022-08-05] MEDS: Bumetanide IV 10 MG in Premix IV 0 ML IV SCH (18:35)
[2022-08-06] MEDS: HYDROmorphone 0.5 MG/0.5 ML SYRINGE IV SLOW PU PRN ×3 (00:43→17:50)
[2022-08-06 03:30] LABS: Calcium 9.1 mg/dL (8.6-10.3); Creatinine, Serum 1.72 mg/dL (0.51-0.95); Potassium 3.5 mmol/L (3.5-5.0)
[2022-08-06] MEDS: Bumetanide IV 10 MG in Premix IV 0 ML IV SCH ×2 (04:07→16:37)
[2022-08-06 04:12] LABS: Hematocrit 28.7 % (35-45); Hemoglobin 9.8 g/dL (11.5-14.3); Mean Corpuscular Hemoglobin 29.9 pg (27-33); Mean Corpuscular Volume 87.9 fL (80-97); Mean Platelet Volume 8.1 fL (7.5-11.2); Platelet Count 138 10^3/uL (150-450); Red Blood Count 3.26 10^6/uL (3.63-4.92); Red Cell Distribution Width 23.5 % (12-17); White Blood Count 14.5 10^3/uL (3.8-11.8)
[2022-08-06 04:28] LABS: ABS Eosinophils 0.1 10^3/uL (0.0-0.5); ABS Lymphocytes 0.5 10^3/uL (1.0-4.8); ABS Monocytes 0.1 10^3/uL (0.0-0.9); ABS Neutrophils 13.8 10^3/uL (1.5-7.6); ABS Nucleated RBC 0.03 10^3/ul; Eosinophil % 0.6 %; Lymphocyte % 3.4 %; Nucleated Red Blood Cells % 0.2 /100 WBC (0.0-0.4)
[2022-08-06 04:56] LABS: ALT 7 U/L (7-52); AST 17 U/L (13-39); Albumin 3.9 g/dL (3.2-5.2); Albumin/Globulin Ratio 3.5 (1-3); Alkaline Phosphatase 48 U/L (35-149); Anion Gap 9 mmol/L (2-11); Blood Urea Nitrogen 13 mg/dL (6-24); CO2 Carbon Dioxide 23 mmol/L (22-32); Calcium 9.2 mg/dL (8.6-10.3); Chloride 111 mmol/L (101-111); Cholesterol 55 mg/dL; Globulin 1.1 g/dL (2-4); Glucose 163 mg/dL (70-100); Magnesium 2.2 mg/dL (1.9-2.7); Phosphorus 1.6 mg/dL (2.5-5.0); Potassium 3.4 mmol/L (3.5-5.0); Prealbumin < 3 mg/dL (18-38); Sodium 143 mmol/L (135-145); Triglycerides 163 mg/dL; eGFR CKD-EPI 33.5 (>60)
[2022-08-06] MEDS ORDERED: Haloperidol 5 mg/ml SDV IV/IM 5 MG/ML AMP ONE (05:22)
[2022-08-06] MEDS ORDERED: Haloperidol 5 mg/ml SDV IV/IM 5 MG/ML AMP IV SLOW PU ONE (05:31)
[2022-08-06] MEDS ORDERED: Potassium Phosphate IV 15 MMOL in NS 0.9% 250 ml 250 ML IVPB ONE (05:36)
[2022-08-06] MEDS: Thiamine 100 MG/ML 2 ml VIAL 100 MG in NS 0.9% 50 ML 50 ML IV SCH (07:50)
[2022-08-06] MEDS ORDERED: Piperacillin/Tazobac ADVAN 3.375 GM in NS 0.9% 100 ml BAG 100 ML IV ONE ×2 (09:52→09:59)
[2022-08-06] MEDS ORDERED: Zosyn per Pharmacy NOTE FOLLOW UP SCH ×2 (10:00)
[2022-08-06] MEDS ORDERED: LORazepam 2 mg VIAL 1 ml IV PUSH ONE (12:48)
[2022-08-06] MEDS ORDERED: Lorazepam PYXIS KEY PRN (12:48)
[2022-08-06] MEDS ORDERED: LORazepam 2 mg VIAL 1 ml ONE (12:50)
[2022-08-06] MEDS ORDERED: Lorazepam PYXIS KEY ONE (12:50)
[2022-08-06] MEDS: Enoxaparin 30 MG/0.3 ML SYR SUBCUT SCH (13:32)
[2022-08-06] MEDS: Albumin Human 25% 25 GM/100 ML BTL IV SCH (13:35)
[2022-08-06] MEDS: ZOSYN 3.375 GM Q8H per EXTENDED INFUSION IV SCH (16:42)
[2022-08-06] MEDS: Pantoprazole VIAL 40 MG VIAL IV SCH (16:43)
[2022-08-06] MEDS: TPN 24 HR with Dextrose 50% Water 500 ML, Amino Acid Infusion 10% 850 ML, Sterile Water... CENT\\PICC SCH (16:50)
[2022-08-06 17:50] LABS: ALT 8 U/L (7-52); AST 22 U/L (13-39); Albumin 3.9 g/dL (3.2-5.2); Albumin/Globulin Ratio 3.5 (1-3); Alkaline Phosphatase 59 U/L (35-149); Anion Gap 9 mmol/L (2-11); Blood Urea Nitrogen 15 mg/dL (6-24); CO2 Carbon Dioxide 25 mmol/L (22-32); Calcium 9.5 mg/dL (8.6-10.3); Chloride 111 mmol/L (101-111); Cholesterol 58 mg/dL; Creatinine, Serum 1.76 mg/dL (0.51-0.95); Globulin 1.1 g/dL (2-4); Glucose 142 mg/dL (70-100); Magnesium 1.9 mg/dL (1.9-2.7); Phosphorus 2.1 mg/dL (2.5-5.0); Potassium 3.2 mmol/L (3.5-5.0); Prealbumin < 3 mg/dL (18-38); Sodium 145 mmol/L (135-145); Triglycerides 172 mg/dL; eGFR CKD-EPI 32.1 (>60)
[2022-08-06] MEDS: KCL 20 MEQ/100 ML IVPREMIX 20 MEQ/100 ML BAG IV SCH ×2 (18:30→21:19)
[2022-08-06] MEDS: LORazepam 2 mg VIAL 1 ml IV PUSH SCH ×2 (18:35→21:25)
[2022-08-06 20:37] LABS: Calcium 9.3 mg/dL (8.6-10.3); Creatinine, Serum 1.78 mg/dL (0.51-0.95); Magnesium 1.8 mg/dL (1.9-2.7); Potassium 3.4 mmol/L (3.5-5.0); eGFR CKD-EPI 31.7 (>60)
[2022-08-06] MEDS ORDERED: Thiamine 100 MG/ML 2 ml VIAL 500 MG in NS 0.9% 50 ML 50 ML IV SCH (21:00)
[2022-08-06] MEDS: Thiamine IV 500 MG in NS 0.9% 250 ML (Wernicke-Korsakoff) IV SCH (21:19)
[2022-08-06] MEDS ORDERED: LORazepam 2 mg VIAL 1 ml IV PUSH SCH (21:28)
[2022-08-07] MEDS: KCL 20 MEQ/100 ML IVPREMIX 20 MEQ/100 ML BAG IV SCH (00:11)
[2022-08-07] MEDS: Bumetanide IV 10 MG in Premix IV 0 ML IV SCH (00:12)
[2022-08-07] MEDS: ZOSYN 3.375 GM Q8H per EXTENDED INFUSION IV SCH ×4 (00:17→23:23)
[2022-08-07] MEDS: HYDROmorphone 0.5 MG/0.5 ML SYRINGE IV SLOW PU PRN (01:47)
[2022-08-07 04:32] LABS: ABS Basophils 0.1 10^3/uL (0.0-0.1); ABS Eosinophils 0.2 10^3/uL (0.0-0.5); ABS Lymphocytes 1.2 10^3/uL (1.0-4.8); ABS Monocytes 0.4 10^3/uL (0.0-0.9); ABS Neutrophils 13.2 10^3/uL (1.5-7.6); ABS Nucleated RBC 0.06 10^3/ul; Eosinophil % 1.1 %; Hematocrit 25.3 % (35-45); Hemoglobin 8.5 g/dL (11.5-14.3); Lymphocyte % 8.1 %; Mean Corpuscular Hemoglobin 29.7 pg (27-33); Mean Corpuscular Hgb Conc 33.6 g/dL (31-36); Mean Corpuscular Volume 88.5 fL (80-97); Mean Platelet Volume 8.4 fL (7.5-11.2); Nucleated Red Blood Cells % 0.4 /100 WBC (0.0-0.4); Platelet Count 72 10^3/uL (150-450); Red Blood Count 2.86 10^6/uL (3.63-4.92); Red Cell Distribution Width 23.3 % (12-17); White Blood Count 15.1 10^3/uL (3.8-11.8)
[2022-08-07 05:09] LABS: PCO2 Arterial 30 mmHg (35-45); PO2 Arterial 66 mmHg (80-100)
[2022-08-07 05:44] LABS: Albumin 3.4 g/dL (3.2-5.2); Albumin/Globulin Ratio 2.4 (1-3); Calcium 9.3 mg/dL (8.6-10.3); Creatinine, Serum 1.73 mg/dL (0.51-0.95); Globulin 1.4 g/dL (2-4); Magnesium 1.7 mg/dL (1.9-2.7); Phosphorus 1.5 mg/dL (2.5-5.0); Potassium 3.3 mmol/L (3.5-5.0); Total Bilirubin 4.5 mg/dL (0.2-1.0); Total Protein 4.8 g/dL (6.4-8.9); eGFR CKD-EPI 32.8 (>60)
[2022-08-07] MEDS ORDERED: Potassium Phosphate IV 15 MMOL in NS 0.9% 250 ml 250 ML IVPB ONE (06:16)
[2022-08-07] MEDS: Albumin Human 25% 25 GM/100 ML BTL IV SCH (09:16)
[2022-08-07 09:30] LABS: Hematocrit 28.8 % (35-45); Hemoglobin 9.5 g/dL (11.5-14.3); Mean Corpuscular Hemoglobin 29.4 pg (27-33); Mean Corpuscular Volume 89.3 fL (80-97); Red Blood Count 3.23 10^6/uL (3.63-4.92); Red Cell Distribution Width 23.1 % (12-17); White Blood Count 16.9 10^3/uL (3.8-11.8)
[2022-08-07 10:18] LABS: Mean Platelet Volume 8.9 fL (7.5-11.2); Platelet Count 84 10^3/uL (150-450)
[2022-08-07] MEDS: Thiamine IV 500 MG in NS 0.9% 250 ML (Wernicke-Korsakoff) IV SCH ×3 (10:19→20:24)
[2022-08-07 10:23] LABS: Anisocytosis 2+; Polychromasia 1+
[2022-08-07 10:24] LABS: ABS Eosinophils 0.6 10^3/uL (0.0-0.5); ABS Lymphocytes 1.3 10^3/uL (1.0-4.8); ABS Monocytes 0.5 10^3/uL (0.0-0.9); ABS Neutrophils 14.5 10^3/uL (1.5-7.6); Eosinophil % 3.5 %; Lymphocyte % 7.6 %; Nucleated Red Blood Cells % 0.6 /100 WBC (0.0-0.4)
[2022-08-07] MEDS: Acetaminophen IV 1 GM/100ML 1,000 MG/100 ML BAG IV PRN ×2 (15:15→23:21)
[2022-08-07] MEDS: TPN 24 HR with Dextrose 50% Water 500 ML, Amino Acid Infusion 10% 850 ML, Sterile Water... CENT\\PICC SCH (17:10)
[2022-08-07] MEDS: Pantoprazole VIAL 40 MG VIAL IV SCH (18:06)
[2022-08-07] MEDS: Morphine 4 MG/ML VIAL (1 ml) IV PRN (20:06)
[2022-08-08] MEDS: Morphine 4 MG/ML VIAL (1 ml) IV PRN ×4 (02:28→19:48)
[2022-08-08 04:25] LABS: Hematocrit 28.4 % (35-45); Hemoglobin 9.1 g/dL (11.5-14.3); Mean Corpuscular Hemoglobin 29.9 pg (27-33); Mean Corpuscular Hgb Conc 32.2 g/dL (31-36); Mean Corpuscular Volume 92.9 fL (80-97); Mean Platelet Volume 8.9 fL (7.5-11.2); Platelet Count 62 10^3/uL (150-450); Red Blood Count 3.06 10^6/uL (3.63-4.92); Red Cell Distribution Width 23.2 % (12-17); White Blood Count 22.4 10^3/uL (3.8-11.8)
[2022-08-08 04:48] LABS: Calcium 8.7 mg/dL (8.6-10.3); Creatinine, Serum 1.8 mg/dL (0.51-0.95); Magnesium 1.5 mg/dL (1.9-2.7); Phosphorus 2.5 mg/dL (2.5-5.0); eGFR CKD-EPI 31.3 (>60)
[2022-08-08 04:49] LABS: Anisocytosis 2+
[2022-08-08 04:50] LABS: ABS Eosinophils 0.1 10^3/uL (0.0-0.5); ABS Monocytes 0.7 10^3/uL (0.0-0.9); ABS Neutrophils 20.6 10^3/uL (1.5-7.6); ABS Nucleated RBC 0.08 10^3/ul; Eosinophil % 0.4 %; Lymphocyte % 4.5 %; Nucleated Red Blood Cells % 0.4 /100 WBC (0.0-0.4); Platelet Morphology Large
[2022-08-08 04:51] LABS: Potassium 2.7 mmol/L (3.5-5.0)
[2022-08-08] MEDS ORDERED: Magnesium Sulfate IV 3 GM in NS 0.9% 100 ml BAG 100 ML IVPB ONE (05:01)
[2022-08-08 05:46] LABS: Albumin/Globulin Ratio 2.1 (1-3); Globulin 1.4 g/dL (2-4); Total Bilirubin 4.7 mg/dL (0.2-1.0); Total Protein 4.4 g/dL (6.4-8.9)
[2022-08-08] MEDS: KCL 20 MEQ/100 ML IVPREMIX 20 MEQ/100 ML BAG IV SCH ×5 (06:16→19:46)
[2022-08-08] MEDS: ZOSYN 3.375 GM Q8H per EXTENDED INFUSION IV SCH ×3 (07:58→23:20)
[2022-08-08] MEDS: Albumin Human 25% 25 GM/100 ML BTL IV SCH (08:43)
[2022-08-08] MEDS: Thiamine IV 500 MG in NS 0.9% 250 ML (Wernicke-Korsakoff) IV SCH ×3 (08:43→21:15)
[2022-08-08 15:50] LABS: Calcium 9.2 mg/dL (8.6-10.3); Creatinine, Serum 1.84 mg/dL (0.51-0.95); Magnesium 2.1 mg/dL (1.9-2.7); Potassium 3.3 mmol/L (3.5-5.0); eGFR CKD-EPI 30.5 (>60)
[2022-08-08] MEDS ORDERED: Anidulafungin 200 MG in NS 0.9% 250 ml 200 ML IVPB ONE (16:37)
[2022-08-08] MEDS: Pantoprazole VIAL 40 MG VIAL IV SCH (17:08)
[2022-08-08] MEDS: TPN 24 HR with Dextrose 50% Water 500 ML, Amino Acid Infusion 10% 850 ML, Sterile Water... CENT\\PICC SCH (17:29)
[2022-08-09] MEDS: Morphine 4 MG/ML VIAL (1 ml) IV PRN ×5 (04:07→21:37)
[2022-08-09 04:32] LABS: Hematocrit 29.1 % (35-45); Hemoglobin 9.6 g/dL (11.5-14.3); Mean Corpuscular Hemoglobin 29.9 pg (27-33); Mean Corpuscular Hgb Conc 33.1 g/dL (31-36); Mean Corpuscular Volume 90.3 fL (80-97); Mean Platelet Volume 9.8 fL (7.5-11.2); Platelet Count 79 10^3/uL (150-450); Red Blood Count 3.22 10^6/uL (3.63-4.92); Red Cell Distribution Width 22.4 % (12-17); White Blood Count 31.8 10^3/uL (3.8-11.8)
[2022-08-09 04:50] LABS: Albumin 3.3 g/dL (3.2-5.2); Albumin/Globulin Ratio 1.8 (1-3); Calcium 8.9 mg/dL (8.6-10.3); Creatinine, Serum 1.75 mg/dL (0.51-0.95); Globulin 1.8 g/dL (2-4); Magnesium 1.8 mg/dL (1.9-2.7); Phosphorus 2.6 mg/dL (2.5-5.0); Potassium 3.3 mmol/L (3.5-5.0); Total Bilirubin 3.8 mg/dL (0.2-1.0); Total Protein 5.1 g/dL (6.4-8.9); eGFR CKD-EPI 32.3 (>60)
[2022-08-09 04:52] LABS: ABS Basophils 0.1 10^3/uL (0.0-0.1); ABS Eosinophils 0.1 10^3/uL (0.0-0.5); ABS Lymphocytes 0.8 10^3/uL (1.0-4.8); ABS Monocytes 0.7 10^3/uL (0.0-0.9); ABS Neutrophils 30.1 10^3/uL (1.5-7.6); ABS Nucleated RBC 0.16 10^3/ul; Eosinophil % 0.5 %; Lymphocyte % 2.5 %; Nucleated Red Blood Cells % 0.5 /100 WBC (0.0-0.4)
[2022-08-09] MEDS ORDERED: Magnesium Sulfate 2 gm BAG 2 GM/50 ML BAG IVPB ONE (05:15)
[2022-08-09] MEDS: KCL 20 MEQ/100 ML IVPREMIX 20 MEQ/100 ML BAG IV SCH ×3 (06:15→10:35)
[2022-08-09] MEDS: ZOSYN 3.375 GM Q8H per EXTENDED INFUSION IV SCH ×2 (08:01→16:30)
[2022-08-09] MEDS: Acetaminophen IV 1 GM/100ML 1,000 MG/100 ML BAG IV PRN ×2 (08:10→21:45)
[2022-08-09] MEDS: Albumin Human 25% 25 GM/100 ML BTL IV SCH (10:08)
[2022-08-09] MEDS: Thiamine IV 500 MG in NS 0.9% 250 ML (Wernicke-Korsakoff) IV SCH ×3 (10:34→21:23)
[2022-08-09] MEDS: Linezolid 600 MG IVPREMIX(*) 600 MG/300 ML BAG IVPB SCH (11:57)
[2022-08-09 12:29] LABS: ALT 12 U/L (7-52); Albumin 3.7 g/dL (3.2-5.2); Albumin/Globulin Ratio 2.2 (1-3); Alkaline Phosphatase 323 U/L (35-149); Blood Urea Nitrogen 36 mg/dL (6-24); CO2 Carbon Dioxide 29 mmol/L (22-32); Calcium 8.9 mg/dL (8.6-10.3); Chloride 113 mmol/L (101-111); Cholesterol 74 mg/dL; Creatinine, Serum 1.74 mg/dL (0.51-0.95); Globulin 1.7 g/dL (2-4); Glucose 174 mg/dL (70-100); Magnesium 2.4 mg/dL (1.9-2.7); Prealbumin 4 mg/dL (18-38); Sodium 150 mmol/L (135-145); Total Protein 5.4 g/dL (6.4-8.9); Triglycerides 219 mg/dL; eGFR CKD-EPI 32.6 (>60)
[2022-08-09 12:33] LABS: Anion Gap 8 mmol/L (2-16)
[2022-08-09 15:25] LABS: Phosphorus 3.5 mg/dL (2.5-5.0); Potassium Redraw 3.7 mmol/L (3.5-5.0)
[2022-08-09] MEDS: Anidulafungin 100 MG in NS 0.9% 100 ml BAG 100 ML IVPB SCH (17:40)
[2022-08-09] MEDS: Pantoprazole VIAL 40 MG VIAL IV SCH (18:13)
[2022-08-09] MEDS ORDERED: Dextrose 50% Syringe 50 ml 25 GM/50 ML SYRINGE IV PUSH PRN (18:56)
[2022-08-10] MEDS: ZOSYN 3.375 GM Q8H per EXTENDED INFUSION IV SCH ×4 (00:11→23:19)
[2022-08-10] MEDS: Linezolid 600 MG IVPREMIX(*) 600 MG/300 ML BAG IVPB SCH ×2 (00:17→12:30)
[2022-08-10] MEDS: Morphine 4 MG/ML VIAL (1 ml) IV PRN ×2 (01:37→06:12)
[2022-08-10 04:48] LABS: Hematocrit 25.2 % (35-45); Mean Corpuscular Hemoglobin 29.3 pg (27-33); Mean Corpuscular Hgb Conc 31.8 g/dL (31-36); Mean Corpuscular Volume 92.1 fL (80-97); Mean Platelet Volume 9.8 fL (7.5-11.2); Platelet Count 113 10^3/uL (150-450); Red Blood Count 2.74 10^6/uL (3.63-4.92); Red Cell Distribution Width 22.8 % (12-17); White Blood Count 37.1 10^3/uL (3.8-11.8)
[2022-08-10 05:34] LABS: Albumin 2.9 g/dL (3.2-5.2); Albumin/Globulin Ratio 1.5 (1-3); Calcium 8.2 mg/dL (8.6-10.3); Creatinine, Serum 1.81 mg/dL (0.51-0.95); Globulin 1.9 g/dL (2-4); Phosphorus 4.6 mg/dL (2.5-5.0); Potassium 3.9 mmol/L (3.5-5.0); Total Bilirubin 2.8 mg/dL (0.2-1.0); Total Protein 4.8 g/dL (6.4-8.9); eGFR CKD-EPI 31.1 (>60)
[2022-08-10 05:42] LABS: Anisocytosis 2+; Hypochromasia 1+; Platelet Morphology Large
[2022-08-10 05:43] LABS: ABS Basophils 0.2 10^3/uL (0.0-0.1); ABS Eosinophils 0.3 10^3/uL (0.0-0.5); ABS Lymphocytes 0.7 10^3/uL (1.0-4.8); ABS Monocytes 0.6 10^3/uL (0.0-0.9); ABS Neutrophils 35.4 10^3/uL (1.5-7.6); ABS Nucleated RBC 0.03 10^3/ul; Eosinophil % 0.7 %; Lymphocyte % 1.8 %; Nucleated Red Blood Cells % 0.1 /100 WBC (0.0-0.4)
[2022-08-10] MEDS ORDERED: Lactated Ringers 1000 ml BAG 1,000 ML IV ONE (07:37)
[2022-08-10] MEDS ORDERED: Iodixanol (CONTRAST) 320 MG/ML 100 ML SDV IV ONE (08:10)
[2022-08-10] MEDS: Thiamine IV 500 MG in NS 0.9% 250 ML (Wernicke-Korsakoff) IV SCH ×3 (09:16→20:18)
[2022-08-10] MEDS: Albumin Human 25% 25 GM/100 ML BTL IV SCH (09:18)
[2022-08-10] MEDS ORDERED: Lidocaine 1% VIAL 10 MG/ML VIAL 30 ML ONE (10:56)
[2022-08-10] MEDS ORDERED: Succinylcholine 200 mg VIAL 20 mg/ml 10 ml VIAL (200 mg) ONE (11:21)
[2022-08-10] MEDS ORDERED: Rocuronium 50 mg VIAL 10 mg/ml 5 ml VIAL (50 mg) ONE ×2 (11:22→11:59)
[2022-08-10] MEDS ORDERED: Propofol 10 mg/ml 100 ML BTL 1,000 MG/100 ML BTL ONE (11:35)
[2022-08-10] MEDS ORDERED: Etomidate 40 mg/20 ml (2 MG/ML) 20 ml VIAL (40 mg) ONE (11:59)
[2022-08-10] MEDS ORDERED: Norepinephrine 16MCG/ML BAGD5W 4,000 MCG/250 ML BAG IV ONE (12:03)
[2022-08-10] MEDS: Norepinephrine 16MCG/ML BAGD5W 4,000 MCG/250 ML BAG IV SCH (12:05)
[2022-08-10] MEDS: Propofol 10 mg/ml 100 ML BTL 1,000 MG/100 ML BTL IV SCH (12:10)
[2022-08-10] MEDS: Pantoprazole VIAL 40 MG VIAL IV SCH (17:47)
[2022-08-10] MEDS: Anidulafungin 100 MG in NS 0.9% 100 ml BAG 100 ML IVPB SCH (17:47)
[2022-08-10 20:38] LABS: Body Fluid Appearance Cloudy; Body Fluid Color Amber; Body Fluid Source Peritonial Fluid
[2022-08-10] MEDS: Chlorhexidine MOUTHWASH 0.12% 15 ML UDC TOPICAL SCH ×2 (21:37→21:38)
[2022-08-10 21:49] LABS: Body Fluid WBC 10331 /mcL
[2022-08-10 22:26] LABS: Body Fluid Mono 10 %; Body Fluid Other Cells 48; Body Fluid Total Cells Counted 200
[2022-08-11] MEDS: Linezolid 600 MG IVPREMIX(*) 600 MG/300 ML BAG IVPB SCH ×2 (00:09→13:40)
[2022-08-11] MEDS: Morphine 4 MG/ML VIAL (1 ml) IV PRN ×2 (00:20→05:40)
[2022-08-11] MEDS: Propofol 10 mg/ml 100 ML BTL 1,000 MG/100 ML BTL IV SCH (00:20)
[2022-08-11] MEDS: Chlorhexidine MOUTHWASH 0.12% 15 ML UDC TOPICAL SCH ×6 (02:47→22:40)
[2022-08-11 05:10] LABS: Hematocrit 23.3 % (35-45); Hemoglobin 7.5 g/dL (11.5-14.3); Mean Corpuscular Hemoglobin 29.5 pg (27-33); Mean Corpuscular Hgb Conc 32.2 g/dL (31-36); Mean Corpuscular Volume 91.7 fL (80-97); Mean Platelet Volume 9.9 fL (7.5-11.2); Platelet Count 162 10^3/uL (150-450); Red Blood Count 2.54 10^6/uL (3.63-4.92); Red Cell Distribution Width 22.2 % (12-17); White Blood Count 34.7 10^3/uL (3.8-11.8)
[2022-08-11 05:28] LABS: ABS Eosinophils 0.4 10^3/uL (0.0-0.5); ABS Lymphocytes 0.5 10^3/uL (1.0-4.8); ABS Monocytes 0.5 10^3/uL (0.0-0.9); ABS Neutrophils 33.3 10^3/uL (1.5-7.6); ABS Nucleated RBC 0.05 10^3/ul; Anisocytosis 2+; Lymphocyte % 1.5 %; Nucleated Red Blood Cells % 0.1 /100 WBC (0.0-0.4); Polychromasia 1+
[2022-08-11 05:55] LABS: Albumin 2.9 g/dL (3.2-5.2); Albumin/Globulin Ratio 1.5 (1-3); Creatinine, Serum 1.76 mg/dL (0.51-0.95); Globulin 1.9 g/dL (2-4); Magnesium 1.6 mg/dL (1.9-2.7); Phosphorus 3.3 mg/dL (2.5-5.0); Potassium 3.5 mmol/L (3.5-5.0); Total Bilirubin 2.7 mg/dL (0.2-1.0); Total Protein 4.8 g/dL (6.4-8.9); eGFR CKD-EPI 32.1 (>60)
[2022-08-11] MEDS: Albumin Human 25% 25 GM/100 ML BTL IV SCH (08:10)
[2022-08-11] MEDS: ZOSYN 3.375 GM Q8H per EXTENDED INFUSION IV SCH ×3 (08:10→22:40)
[2022-08-11] MEDS: Thiamine IV 500 MG in NS 0.9% 250 ML (Wernicke-Korsakoff) IV SCH ×2 (09:47→16:02)
[2022-08-11] MEDS: Pantoprazole VIAL 40 MG VIAL IV SCH (19:04)
[2022-08-12] MEDS: Linezolid 600 MG IVPREMIX(*) 600 MG/300 ML BAG IVPB SCH ×2 (01:15→12:57)
[2022-08-12] MEDS: Chlorhexidine MOUTHWASH 0.12% 15 ML UDC TOPICAL SCH ×6 (02:17→23:00)
[2022-08-12 04:33] LABS: Hematocrit 28.8 % (35-45); Hemoglobin 9.5 g/dL (11.5-14.3); Mean Corpuscular Hemoglobin 29.3 pg (27-33); Mean Corpuscular Hgb Conc 33.1 g/dL (31-36); Mean Corpuscular Volume 88.5 fL (80-97); Mean Platelet Volume 9.4 fL (7.5-11.2); Platelet Count 225 10^3/uL (150-450); Red Blood Count 3.26 10^6/uL (3.63-4.92); Red Cell Distribution Width 20.9 % (12-17); White Blood Count 33.5 10^3/uL (3.8-11.8)
[2022-08-12 04:51] LABS: ABS Lymphocytes 0.5 10^3/uL (1.0-4.8); ABS Monocytes 0.5 10^3/uL (0.0-0.9); ABS Neutrophils 32.4 10^3/uL (1.5-7.6); ABS Nucleated RBC 0.06 10^3/ul; Eosinophil % 0.1 %; Lymphocyte % 1.4 %; Nucleated Red Blood Cells % 0.2 /100 WBC (0.0-0.4)
[2022-08-12 05:20] LABS: Albumin/Globulin Ratio 1.3 (1-3); Calcium 7.9 mg/dL (8.6-10.3); Creatinine, Serum 1.76 mg/dL (0.51-0.95); Globulin 2.3 g/dL (2-4); Magnesium 1.6 mg/dL (1.9-2.7); Phosphorus 3.1 mg/dL (2.5-5.0); Potassium 3.5 mmol/L (3.5-5.0); Total Protein 5.3 g/dL (6.4-8.9); eGFR CKD-EPI 32.1 (>60)
[2022-08-12] MEDS ORDERED: Magnesium Sulfate IV 3 GM in NS 0.9% 100 ml BAG 100 ML IVPB ONE (06:02)
[2022-08-12] MEDS: ZOSYN 3.375 GM Q8H per EXTENDED INFUSION IV SCH ×2 (08:02→17:25)
[2022-08-12] MEDS: Albumin Human 25% 25 GM/100 ML BTL IV SCH (09:13)
[2022-08-12] MEDS: Acetaminophen IV 1 GM/100ML 1,000 MG/100 ML BAG IV PRN ×2 (09:25→21:08)
[2022-08-12] MEDS ORDERED: Heparin 5000 UNITS/ML 1 mL VIAL SUBCUT SCH (14:00)
[2022-08-12] MEDS ORDERED: Furosemide 40 mg/4 ml IV VIAL IV SLOW PU ONE (16:08)
[2022-08-12] MEDS: Pantoprazole VIAL 40 MG VIAL IV SCH (17:48)
[2022-08-12 23:50] LABS: Creatinine, Serum 1.83 mg/dL (0.51-0.95); Magnesium 2.1 mg/dL (1.9-2.7); Potassium 3.2 mmol/L (3.5-5.0); eGFR CKD-EPI 30.7 (>60)
[2022-08-13] MEDS ORDERED: KCL 20 MEQ/100 ML IVPREMIX 20 MEQ/100 ML BAG IV ONE (00:22)
[2022-08-13] MEDS ORDERED: Potassium Chloride LIQUID 20 MEQ/15 ML LIQUID PO ONE (00:22)
[2022-08-13] MEDS: Linezolid 600 MG IVPREMIX(*) 600 MG/300 ML BAG IVPB SCH ×3 (01:25→23:58)
[2022-08-13] MEDS: Chlorhexidine MOUTHWASH 0.12% 15 ML UDC TOPICAL SCH ×6 (01:52→22:10)
[2022-08-13 05:52] LABS: Hematocrit 26.5 % (35-45); Hemoglobin 8.7 g/dL (11.5-14.3); Mean Corpuscular Hemoglobin 29.9 pg (27-33); Mean Corpuscular Hgb Conc 32.7 g/dL (31-36); Mean Corpuscular Volume 91.5 fL (80-97); Mean Platelet Volume 9.3 fL (7.5-11.2); Platelet Count 223 10^3/uL (150-450); Red Blood Count 2.89 10^6/uL (3.63-4.92); Red Cell Distribution Width 20.4 % (12-17); White Blood Count 26.4 10^3/uL (3.8-11.8)
[2022-08-13 05:55] LABS: ABS Lymphocytes 0.4 10^3/uL (1.0-4.8); ABS Monocytes 0.3 10^3/uL (0.0-0.9); ABS Neutrophils 25.6 10^3/uL (1.5-7.6); ABS Nucleated RBC 0.02 10^3/ul; Eosinophil % 0.2 %; Lymphocyte % 1.5 %; Nucleated Red Blood Cells % 0.1 /100 WBC (0.0-0.4)
[2022-08-13 06:41] LABS: Albumin/Globulin Ratio 1.3 (1-3); Calcium 7.9 mg/dL (8.6-10.3); Creatinine, Serum 1.74 mg/dL (0.51-0.95); Globulin 2.3 g/dL (2-4); Magnesium 2.1 mg/dL (1.9-2.7); Phosphorus 3.3 mg/dL (2.5-5.0); Potassium 3.9 mmol/L (3.5-5.0); Total Bilirubin 1.8 mg/dL (0.2-1.0); Total Protein 5.3 g/dL (6.4-8.9); eGFR CKD-EPI 32.6 (>60)
[2022-08-13] MEDS: Metoprolol Tartrate 5 mg VIAL 5 ml VIAL (1 mg/ml) IV PRN (11:06)
[2022-08-13 11:28] LABS: INR 1.24 (0.88-1.18)
[2022-08-13 12:38] LABS: Albumin, BF 2.1 g/dL; Fluid Type, Albumin PERITONEAL; Glucose, BF 120 mg/dL
[2022-08-13] MEDS: Acetaminophen IV 1 GM/100ML 1,000 MG/100 ML BAG IV PRN ×2 (13:05→23:57)
[2022-08-13] MEDS ORDERED: fentaNYL 100 mcg/2 ml 50 MCG/ML VIAL ONE (15:47)
[2022-08-13] MEDS: Pantoprazole VIAL 40 MG VIAL IV SCH (18:23)
[2022-08-14] MEDS: Chlorhexidine MOUTHWASH 0.12% 15 ML UDC TOPICAL SCH ×6 (02:51→23:18)
[2022-08-14] MEDS: Metoprolol Tartrate 5 mg VIAL 5 ml VIAL (1 mg/ml) IV PRN ×3 (02:57→15:22)
[2022-08-14 04:45] LABS: Hematocrit 25.9 % (35-45); Hemoglobin 8.4 g/dL (11.5-14.3); Mean Corpuscular Hemoglobin 29.4 pg (27-33); Mean Corpuscular Hgb Conc 32.5 g/dL (31-36); Mean Corpuscular Volume 90.6 fL (80-97); Mean Platelet Volume 9.3 fL (7.5-11.2); Platelet Count 250 10^3/uL (150-450); Red Blood Count 2.86 10^6/uL (3.63-4.92); Red Cell Distribution Width 20.9 % (12-17); White Blood Count 18.1 10^3/uL (3.8-11.8)
[2022-08-14 05:21] LABS: Albumin 2.8 g/dL (3.2-5.2); Albumin/Globulin Ratio 1.1 (1-3); Calcium 8.2 mg/dL (8.6-10.3); Creatinine, Serum 1.27 mg/dL (0.51-0.95); Globulin 2.5 g/dL (2-4); Magnesium 2.1 mg/dL (1.9-2.7); Phosphorus 3.1 mg/dL (2.5-5.0); Potassium 3.8 mmol/L (3.5-5.0); Total Bilirubin 1.3 mg/dL (0.2-1.0); Total Protein 5.3 g/dL (6.4-8.9); eGFR CKD-EPI 47.5 (>60)
[2022-08-14 07:43] LABS: Anisocytosis 3+; Polychromasia 1+
[2022-08-14 07:44] LABS: ABS Basophils 0.1 10^3/uL (0.0-0.1); ABS Lymphocytes 0.3 10^3/uL (1.0-4.8); ABS Monocytes 0.4 10^3/uL (0.0-0.9); ABS Neutrophils 17.3 10^3/uL (1.5-7.6); ABS Nucleated RBC 0.01 10^3/ul; Eosinophil % 0.1 %; Lymphocyte % 1.7 %; Nucleated Red Blood Cells % 0.1 /100 WBC (0.0-0.4)
[2022-08-14] MEDS: Acetaminophen IV 1 GM/100ML 1,000 MG/100 ML BAG IV PRN (09:12)
[2022-08-14 11:13] LABS: Lactate Dehydrogenase, BF 1584 U/L
[2022-08-14] MEDS ORDERED: Furosemide 40 mg/4 ml IV VIAL IV SLOW PU ONE (11:49)
[2022-08-14] MEDS: Linezolid 600 MG IVPREMIX(*) 600 MG/300 ML BAG IVPB SCH (12:10)
[2022-08-14] MEDS ORDERED: Bumetanide IV 0.25 MG/ML 4 ml VIAL (1 mg) IV SLOW PU ONE (14:27)
[2022-08-14] MEDS: fentaNYL 100 mcg/2 ml 50 MCG/ML VIAL IV SLOW PU PRN (15:31)
[2022-08-14] MEDS: Propofol 10 mg/ml 100 ML BTL 1,000 MG/100 ML BTL IV SCH (17:13)
[2022-08-14] MEDS: Pantoprazole VIAL 40 MG VIAL IV SCH (17:16)
[2022-08-15] MEDS: Linezolid 600 MG IVPREMIX(*) 600 MG/300 ML BAG IVPB SCH ×2 (00:41→13:31)
[2022-08-15] MEDS: fentaNYL 100 mcg/2 ml 50 MCG/ML VIAL IV SLOW PU PRN ×3 (00:42→15:20)
[2022-08-15] MEDS: Chlorhexidine MOUTHWASH 0.12% 15 ML UDC TOPICAL SCH ×6 (02:39→21:41)
[2022-08-15] MEDS: Metoprolol Tartrate 5 mg VIAL 5 ml VIAL (1 mg/ml) IV PRN ×2 (02:39→07:40)
[2022-08-15 03:57] LABS: ABS Basophils 0.1 10^3/uL (0.0-0.1); ABS Eosinophils 0.1 10^3/uL (0.0-0.5); ABS Lymphocytes 0.6 10^3/uL (1.0-4.8); ABS Monocytes 0.5 10^3/uL (0.0-0.9); ABS Nucleated RBC 0.01 10^3/ul; Eosinophil % 0.3 %; Hematocrit 27.1 % (35-45); Hemoglobin 8.8 g/dL (11.5-14.3); Lymphocyte % 3.4 %; Mean Corpuscular Hemoglobin 30.7 pg (27-33); Mean Corpuscular Hgb Conc 32.6 g/dL (31-36); Mean Corpuscular Volume 94.4 fL (80-97); Mean Platelet Volume 8.8 fL (7.5-11.2); Nucleated Red Blood Cells % 0.1 /100 WBC (0.0-0.4); Platelet Count 323 10^3/uL (150-450); Red Blood Count 2.87 10^6/uL (3.63-4.92); Red Cell Distribution Width 20.2 % (12-17); White Blood Count 16.2 10^3/uL (3.8-11.8)
[2022-08-15 04:30] LABS: Albumin/Globulin Ratio 1.1 (1-3); Calcium 8.5 mg/dL (8.6-10.3); Creatinine, Serum 0.94 mg/dL (0.51-0.95); Globulin 2.7 g/dL (2-4); Phosphorus 3.4 mg/dL (2.5-5.0); Potassium 3.5 mmol/L (3.5-5.0); Total Bilirubin 1.1 mg/dL (0.2-1.0); Total Protein 5.7 g/dL (6.4-8.9); eGFR CKD-EPI 68.2 (>60)
[2022-08-15 08:52] LABS: TSH Ultra Thyroid Stim Horm 4.99 mcIU/mL (0.34-5.60)
[2022-08-15] MEDS: Acetaminophen IV 1 GM/100ML 1,000 MG/100 ML BAG IV PRN (09:00)
[2022-08-15] MEDS ORDERED: Naloxone 0.4 mg VIAL 0.4 mg/ml 1 ml VIAL ONE (14:36)
[2022-08-15] MEDS ORDERED: Midazolam 5 mg/5 ml VIAL 1 mg/ml 5 ml VIAL (5 mg) ONE (14:36)
[2022-08-15] MEDS ORDERED: Flumazenil 0.5 mg/5 ml 0.1 MG/ML 5 ml VIAL ONE (14:36)
[2022-08-15] MEDS ORDERED: fentaNYL 100 mcg/2 ml 50 MCG/ML VIAL ONE (14:36)
[2022-08-15] MEDS ORDERED: Benzocaine/Butamben/Tetracain (CETACAINE - SINGLE USE) 5 gm TOPICAL ONE (15:30)
[2022-08-15 17:06] LABS: Body Fluid Source Cerebral Spinal
[2022-08-15] MEDS: Pantoprazole VIAL 40 MG VIAL IV SCH (17:09)
[2022-08-15 17:15] LABS: Body Fluid Appearance Clear; Body Fluid Color Colorless; CSF Tube # 1
[2022-08-15 17:28] LABS: Body Fluid WBC 0 /mcL
[2022-08-15 17:41] LABS: Body Fluid Mono 1 %; Body Fluid Total Cells Counted 1
[2022-08-16] MEDS: Linezolid 600 MG IVPREMIX(*) 600 MG/300 ML BAG IVPB SCH ×3 (00:51→23:55)
[2022-08-16] MEDS: Chlorhexidine MOUTHWASH 0.12% 15 ML UDC TOPICAL SCH ×6 (01:19→20:40)
[2022-08-16 05:08] LABS: Hematocrit 25.2 % (35-45); Hemoglobin 8.2 g/dL (11.5-14.3); Mean Corpuscular Hemoglobin 30.3 pg (27-33); Mean Corpuscular Hgb Conc 32.6 g/dL (31-36); Mean Platelet Volume 8.1 fL (7.5-11.2); Platelet Count 340 10^3/uL (150-450); Red Cell Distribution Width 19.8 % (12-17); White Blood Count 15.7 10^3/uL (3.8-11.8)
[2022-08-16 05:49] LABS: Albumin 2.9 g/dL (3.2-5.2); Albumin/Globulin Ratio 1.2 (1-3); Calcium 8.8 mg/dL (8.6-10.3); Creatinine, Serum 0.7 mg/dL (0.51-0.95); Globulin 2.5 g/dL (2-4); Magnesium 2.2 mg/dL (1.9-2.7); Phosphorus 3.3 mg/dL (2.5-5.0); Potassium 3.2 mmol/L (3.5-5.0); Total Bilirubin 0.8 mg/dL (0.2-1.0); Total Protein 5.4 g/dL (6.4-8.9); eGFR CKD-EPI 97.1 (>60)
[2022-08-16 06:24] LABS: ABS Basophils 0.1 10^3/uL (0.0-0.1); ABS Eosinophils 0.1 10^3/uL (0.0-0.5); ABS Lymphocytes 0.6 10^3/uL (1.0-4.8); ABS Monocytes 0.7 10^3/uL (0.0-0.9); ABS Neutrophils 14.3 10^3/uL (1.5-7.6); ABS Nucleated RBC 0.02 10^3/ul; Eosinophil % 0.3 %; Nucleated Red Blood Cells % 0.1 /100 WBC (0.0-0.4)
[2022-08-16] MEDS ORDERED: KCL 20 MEQ/100 ML IVPREMIX 20 MEQ/100 ML BAG IV ONE (06:41)
[2022-08-16] MEDS ORDERED: Potassium Chloride LIQUID 20 MEQ/15 ML LIQUID PO ONE (06:41)
[2022-08-16] MEDS ORDERED: Magnesium Sulfate 2 gm BAG 2 GM/50 ML BAG IVPB ONE (06:41)
[2022-08-16] MEDS: Norepinephrine 16MCG/ML BAGD5W 4,000 MCG/250 ML BAG IV SCH (08:08)
[2022-08-16] MEDS: Pantoprazole VIAL 40 MG VIAL IV SCH (17:56)
[2022-08-16] MEDS: Acetaminophen IV 1 GM/100ML 1,000 MG/100 ML BAG IV PRN (23:42)
[2022-08-17] MEDS: Chlorhexidine MOUTHWASH 0.12% 15 ML UDC TOPICAL SCH ×6 (02:41→20:13)
[2022-08-17 05:49] LABS: ABS Basophils 0.1 10^3/uL (0.0-0.1); ABS Eosinophils 0.1 10^3/uL (0.0-0.5); ABS Lymphocytes 0.8 10^3/uL (1.0-4.8); ABS Monocytes 0.9 10^3/uL (0.0-0.9); ABS Neutrophils 11.1 10^3/uL (1.5-7.6); ABS Nucleated RBC 0.01 10^3/ul; Eosinophil % 0.9 %; Hematocrit 23.4 % (35-45); Hemoglobin 7.7 g/dL (11.5-14.3); Lymphocyte % 6.4 %; Mean Corpuscular Hemoglobin 30.6 pg (27-33); Mean Corpuscular Hgb Conc 32.9 g/dL (31-36); Mean Corpuscular Volume 93.2 fL (80-97); Mean Platelet Volume 7.8 fL (7.5-11.2); Nucleated Red Blood Cells % 0.1 /100 WBC (0.0-0.4); Platelet Count 327 10^3/uL (150-450); Red Blood Count 2.52 10^6/uL (3.63-4.92); Red Cell Distribution Width 19.2 % (12-17)
[2022-08-17 06:39] LABS: Albumin 2.9 g/dL (3.2-5.2); Albumin/Globulin Ratio 1.1 (1-3); Calcium 8.8 mg/dL (8.6-10.3); Creatinine, Serum 0.68 mg/dL (0.51-0.95); Globulin 2.6 g/dL (2-4); Magnesium 2.1 mg/dL (1.9-2.7); Phosphorus 3.1 mg/dL (2.5-5.0); Potassium 3.4 mmol/L (3.5-5.0); Total Bilirubin 0.8 mg/dL (0.2-1.0); Total Protein 5.5 g/dL (6.4-8.9); eGFR CKD-EPI 97.8 (>60)
[2022-08-17] MEDS: Potassium Chloride LIQUID 20 MEQ/15 ML LIQUID PO SCH ×2 (07:43→08:08)
[2022-08-17] MEDS: Linezolid 600 MG IVPREMIX(*) 600 MG/300 ML BAG IVPB SCH (11:31)
[2022-08-17 16:15] LABS: HSV 1 PCR, CSF Negative (Negative); HSV 2 PCR, CSF Negative (Negative)
[2022-08-17] MEDS ORDERED: KCL 20 MEQ/100 ML IVPREMIX 20 MEQ/100 ML BAG IV ONE ×2 (17:35→18:05)
[2022-08-17] MEDS: Pantoprazole VIAL 40 MG VIAL IV SCH (17:51)
[2022-08-17] MEDS: Acetaminophen IV 1 GM/100ML 1,000 MG/100 ML BAG IV PRN (19:25)
[2022-08-18] MEDS: Linezolid 600 MG IVPREMIX(*) 600 MG/300 ML BAG IVPB SCH ×3 (00:24→23:45)
[2022-08-18] MEDS: Chlorhexidine MOUTHWASH 0.12% 15 ML UDC TOPICAL SCH ×6 (01:51→21:26)
[2022-08-18 05:03] LABS: ABS Basophils 0.2 10^3/uL (0.0-0.1); ABS Eosinophils 0.2 10^3/uL (0.0-0.5); ABS Lymphocytes 0.9 10^3/uL (1.0-4.8); ABS Monocytes 0.7 10^3/uL (0.0-0.9); ABS Neutrophils 10.1 10^3/uL (1.5-7.6); ABS Nucleated RBC 0.03 10^3/ul; Eosinophil % 1.9 %; Hemoglobin 7.9 g/dL (11.5-14.3); Lymphocyte % 7.2 %; Mean Corpuscular Hemoglobin 30.8 pg (27-33); Mean Corpuscular Hgb Conc 32.9 g/dL (31-36); Mean Corpuscular Volume 93.5 fL (80-97); Mean Platelet Volume 7.7 fL (7.5-11.2); Nucleated Red Blood Cells % 0.2 /100 WBC (0.0-0.4); Platelet Count 368 10^3/uL (150-450); Red Blood Count 2.56 10^6/uL (3.63-4.92); Red Cell Distribution Width 19.2 % (12-17)
[2022-08-18 05:27] LABS: Albumin 2.8 g/dL (3.2-5.2); Albumin/Globulin Ratio 1.1 (1-3); Calcium 8.8 mg/dL (8.6-10.3); Creatinine, Serum 0.45 mg/dL (0.51-0.95); Globulin 2.6 g/dL (2-4); Phosphorus 3.1 mg/dL (2.5-5.0); Potassium 3.7 mmol/L (3.5-5.0); Total Bilirubin 0.7 mg/dL (0.2-1.0); Total Protein 5.4 g/dL (6.4-8.9)
[2022-08-18] MEDS: Pantoprazole VIAL 40 MG VIAL IV SCH (16:29)
[2022-08-18] MEDS: Acetaminophen IV 1 GM/100ML 1,000 MG/100 ML BAG IV PRN (19:44)
[2022-08-19] MEDS: fentaNYL 100 mcg/2 ml 50 MCG/ML VIAL IV SLOW PU PRN ×2 (01:15→17:52)
[2022-08-19] MEDS: Chlorhexidine MOUTHWASH 0.12% 15 ML UDC TOPICAL SCH ×3 (02:35→10:53)
[2022-08-19] MEDS ORDERED: Propofol 10 mg/ml 100 ML BTL 1,000 MG/100 ML BTL IV SCH (03:00)
[2022-08-19 04:58] LABS: ABS Basophils 0.1 10^3/uL (0.0-0.1); ABS Eosinophils 0.2 10^3/uL (0.0-0.5); ABS Lymphocytes 0.8 10^3/uL (1.0-4.8); ABS Monocytes 0.7 10^3/uL (0.0-0.9); ABS Nucleated RBC 0.01 10^3/ul; Eosinophil % 1.6 %; Hematocrit 23.4 % (35-45); Hemoglobin 7.7 g/dL (11.5-14.3); Lymphocyte % 6.6 %; Mean Corpuscular Hgb Conc 32.9 g/dL (31-36); Mean Corpuscular Volume 94.3 fL (80-97); Mean Platelet Volume 7.4 fL (7.5-11.2); Nucleated Red Blood Cells % 0.1 /100 WBC (0.0-0.4); Platelet Count 400 10^3/uL (150-450); Red Blood Count 2.49 10^6/uL (3.63-4.92); Red Cell Distribution Width 19.5 % (12-17); White Blood Count 11.8 10^3/uL (3.8-11.8)
[2022-08-19 05:44] LABS: Albumin 2.7 g/dL (3.2-5.2); Albumin/Globulin Ratio 1.1 (1-3); Calcium 8.5 mg/dL (8.6-10.3); Creatinine, Serum 0.43 mg/dL (0.51-0.95); Globulin 2.4 g/dL (2-4); Magnesium 1.9 mg/dL (1.9-2.7); Phosphorus 3.1 mg/dL (2.5-5.0); Potassium 3.3 mmol/L (3.5-5.0); Total Bilirubin 0.6 mg/dL (0.2-1.0); Total Protein 5.1 g/dL (6.4-8.9); eGFR CKD-EPI 109.2 (>60)
[2022-08-19] MEDS: Acetaminophen IV 1 GM/100ML 1,000 MG/100 ML BAG IV PRN ×2 (07:47→16:15)
[2022-08-19] MEDS ORDERED: KCL 20 MEQ/100 ML IVPREMIX 20 MEQ/100 ML BAG IV SCH (08:00)
[2022-08-19] MEDS ORDERED: Potassium Chloride LIQUID 20 MEQ/15 ML LIQUID PO ONE (09:56)
[2022-08-19] MEDS: Linezolid 600 MG IVPREMIX(*) 600 MG/300 ML BAG IVPB SCH ×2 (12:59→23:36)
[2022-08-19] MEDS: Pantoprazole VIAL 40 MG VIAL IV SCH (16:15)
[2022-08-20] MEDS: Acetaminophen IV 1 GM/100ML 1,000 MG/100 ML BAG IV PRN ×3 (01:30→15:05)
[2022-08-20 05:54] LABS: ABS Basophils 0.1 10^3/uL (0.0-0.1); ABS Eosinophils 0.1 10^3/uL (0.0-0.5); ABS Lymphocytes 0.7 10^3/uL (1.0-4.8); ABS Monocytes 0.7 10^3/uL (0.0-0.9); ABS Neutrophils 10.6 10^3/uL (1.5-7.6); ABS Nucleated RBC 0.01 10^3/ul; Hematocrit 22.5 % (35-45); Hemoglobin 7.5 g/dL (11.5-14.3); Lymphocyte % 5.8 %; Mean Corpuscular Hemoglobin 31.5 pg (27-33); Mean Corpuscular Hgb Conc 33.5 g/dL (31-36); Mean Corpuscular Volume 93.9 fL (80-97); Mean Platelet Volume 7.3 fL (7.5-11.2); Nucleated Red Blood Cells % 0.1 /100 WBC (0.0-0.4); Platelet Count 437 10^3/uL (150-450); Red Blood Count 2.39 10^6/uL (3.63-4.92); Red Cell Distribution Width 18.9 % (12-17); White Blood Count 12.3 10^3/uL (3.8-11.8)
[2022-08-20 06:36] LABS: Calcium 8.5 mg/dL (8.6-10.3); Creatinine, Serum 0.47 mg/dL (0.51-0.95); Magnesium 1.7 mg/dL (1.9-2.7); Phosphorus 2.5 mg/dL (2.5-5.0); Potassium 3.1 mmol/L (3.5-5.0); eGFR CKD-EPI 106.9 (>60)
[2022-08-20] MEDS ORDERED: Magnesium Sulfate 2 gm BAG 2 GM/50 ML BAG IVPB ONE (06:59)
[2022-08-20] MEDS: Potassium Chloride LIQUID 20 MEQ/15 ML LIQUID PO SCH ×2 (09:21→11:13)
[2022-08-20] MEDS: Linezolid 600 MG IVPREMIX(*) 600 MG/300 ML BAG IVPB SCH (11:53)
[2022-08-20] MEDS: Pantoprazole VIAL 40 MG VIAL IV SCH (17:40)
[2022-08-21] MEDS: Linezolid 600 MG IVPREMIX(*) 600 MG/300 ML BAG IVPB SCH ×3 (00:20→23:27)
[2022-08-21] MEDS: Lactated Ringers 1000 ml BAG 1,000 ML IV SCH ×2 (04:15→16:15)
[2022-08-21 06:18] LABS: Hematocrit 23.8 % (35-45); Hemoglobin 7.9 g/dL (11.5-14.3); Mean Corpuscular Hemoglobin 31.4 pg (27-33); Mean Corpuscular Hgb Conc 33.3 g/dL (31-36); Mean Corpuscular Volume 94.6 fL (80-97); Mean Platelet Volume 7.1 fL (7.5-11.2); Platelet Count 535 10^3/uL (150-450); Red Blood Count 2.52 10^6/uL (3.63-4.92); Red Cell Distribution Width 19.2 % (12-17); White Blood Count 13.5 10^3/uL (3.8-11.8)
[2022-08-21 06:50] LABS: Calcium 8.6 mg/dL (8.6-10.3); Creatinine, Serum 0.44 mg/dL (0.51-0.95); Potassium 3.6 mmol/L (3.5-5.0); eGFR CKD-EPI 108.6 (>60)
[2022-08-21] MEDS: Acetaminophen IV 1 GM/100ML 1,000 MG/100 ML BAG IV PRN ×2 (07:23→14:08)
[2022-08-21] MEDS ORDERED: Ondansetron 4 mg VIAL 2 MG/ML 2 ml VIAL IV PRN (09:22)
[2022-08-21] MEDS: fentaNYL 100 mcg/2 ml 50 MCG/ML VIAL IV SLOW PU PRN (09:26)
[2022-08-21 10:24] LABS: AGNA-1, CSF Negative (Negative); ANNA-1, CSF Negative (Negative); ANNA-2, CSF Negative (Negative); ANNA-3, CSF Negative (Negative); Amphiphysin Ab, CSF Negative (Negative); CRMP-5-IgG, CSF Negative (Negative); IFA Notes None.; PCA-1, CSF Negative (Negative); PCA-2, CSF Negative (Negative); PCA-Tr, CSF Negative (Negative)
[2022-08-21] MEDS: Pantoprazole VIAL 40 MG VIAL IV SCH (18:28)
[2022-08-22] MEDS: Lactated Ringers 1000 ml BAG 1,000 ML IV SCH (02:08)
[2022-08-22 06:12] LABS: Hematocrit 22.9 % (35-45); Hemoglobin 7.6 g/dL (11.5-14.3); Mean Corpuscular Hemoglobin 31.3 pg (27-33); Mean Corpuscular Hgb Conc 33.2 g/dL (31-36); Mean Corpuscular Volume 94.3 fL (80-97); Platelet Count 539 10^3/uL (150-450); Red Blood Count 2.43 10^6/uL (3.63-4.92); Red Cell Distribution Width 21.3 % (12-17)
[2022-08-22 06:27] LABS: Calcium 8.4 mg/dL (8.6-10.3); Creatinine, Serum 0.43 mg/dL (0.51-0.95); Magnesium 1.8 mg/dL (1.9-2.7); Potassium 3.4 mmol/L (3.5-5.0); eGFR CKD-EPI 109.2 (>60)
[2022-08-22] MEDS ORDERED: KCL 20 MEQ/100 ML IVPREMIX 20 MEQ/100 ML BAG IV ONE (07:38)
[2022-08-22] MEDS ORDERED: Magnesium Sulfate 2 gm BAG 2 GM/50 ML BAG IVPB ONE (07:38)
[2022-08-22 08:37] LABS: ABS Basophils 0.1 10^3/uL (0.0-0.1); ABS Eosinophils 0.2 10^3/uL (0.0-0.5); ABS Lymphocytes 0.8 10^3/uL (1.0-4.8); ABS Monocytes 0.8 10^3/uL (0.0-0.9); ABS Neutrophils 11.2 10^3/uL (1.5-7.6); Eosinophil % 1.3 %; Lymphocyte % 5.8 %
[2022-08-22] MEDS ORDERED: Iohexol 300 (CONTRAST) 10 ML SDV ONE (12:08)
[2022-08-22] MEDS: fentaNYL 100 mcg/2 ml 50 MCG/ML VIAL IV SLOW PU PRN (13:01)
[2022-08-22] MEDS: Linezolid 600 MG IVPREMIX(*) 600 MG/300 ML BAG IVPB SCH (14:35)
[2022-08-22] MEDS: Pantoprazole VIAL 40 MG VIAL IV SCH (17:52)
[2022-08-23] MEDS: Acetaminophen IV 1 GM/100ML 1,000 MG/100 ML BAG IV PRN ×2 (00:31→10:39)
[2022-08-23] MEDS: Linezolid 600 MG IVPREMIX(*) 600 MG/300 ML BAG IVPB SCH ×2 (00:40→14:27)
[2022-08-23 05:35] LABS: ABS Basophils 0.1 10^3/uL (0.0-0.1); ABS Eosinophils 0.3 10^3/uL (0.0-0.5); ABS Lymphocytes 0.9 10^3/uL (1.0-4.8); ABS Monocytes 0.9 10^3/uL (0.0-0.9); ABS Neutrophils 12.7 10^3/uL (1.5-7.6); ABS Nucleated RBC 0.01 10^3/ul; Eosinophil % 1.8 %; Hematocrit 22.3 % (35-45); Hemoglobin 7.4 g/dL (11.5-14.3); Mean Corpuscular Hemoglobin 31.8 pg (27-33); Mean Corpuscular Hgb Conc 33.4 g/dL (31-36); Mean Corpuscular Volume 95.3 fL (80-97); Mean Platelet Volume 6.9 fL (7.5-11.2); Platelet Count 604 10^3/uL (150-450); Red Blood Count 2.34 10^6/uL (3.63-4.92); Red Cell Distribution Width 22.4 % (12-17); White Blood Count 14.9 10^3/uL (3.8-11.8)
[2022-08-23 05:50] LABS: Calcium 8.4 mg/dL (8.6-10.3); Creatinine, Serum 0.42 mg/dL (0.51-0.95); Magnesium 1.9 mg/dL (1.9-2.7); Potassium 3.3 mmol/L (3.5-5.0); eGFR CKD-EPI 109.8 (>60)
[2022-08-23] MEDS ORDERED: Potassium Chloride LIQUID 20 MEQ/15 ML LIQUID PO ONE (07:57)
[2022-08-23] MEDS ORDERED: Magnesium Sulfate IV 1GM/100ML 1 GM/100 ML BAG IV ONE (07:57)
[2022-08-23] MEDS: Pantoprazole VIAL 40 MG VIAL IV SCH (17:34)
[2022-08-24] MEDS: Linezolid 600 MG IVPREMIX(*) 600 MG/300 ML BAG IVPB SCH ×2 (00:34→12:28)
[2022-08-24 07:24] LABS: ABS Basophils 0.1 10^3/uL (0.0-0.1); ABS Eosinophils 0.3 10^3/uL (0.0-0.5); ABS Lymphocytes 1.1 10^3/uL (1.0-4.8); ABS Monocytes 0.8 10^3/uL (0.0-0.9); ABS Neutrophils 15.9 10^3/uL (1.5-7.6); Eosinophil % 1.9 %; Hematocrit 24.9 % (35-45); Hemoglobin 8.1 g/dL (11.5-14.3); Lymphocyte % 6.1 %; Mean Corpuscular Hemoglobin 31.3 pg (27-33); Mean Corpuscular Hgb Conc 32.5 g/dL (31-36); Mean Corpuscular Volume 96.3 fL (80-97); Mean Platelet Volume 7.4 fL (7.5-11.2); Platelet Count 652 10^3/uL (150-450); Red Blood Count 2.58 10^6/uL (3.63-4.92); Red Cell Distribution Width 22.4 % (12-17); White Blood Count 18.3 10^3/uL (3.8-11.8)
[2022-08-24 07:51] LABS: Calcium 8.2 mg/dL (8.6-10.3); Magnesium 1.9 mg/dL (1.9-2.7); Potassium 3.9 mmol/L (3.5-5.0)
[2022-08-24 07:57] LABS: Creatinine, Serum 0.4 mg/dL (0.51-0.95); eGFR CKD-EPI 111.1 (>60)
[2022-08-24 09:52] LABS: C Reactive Protein 100.04 mg/L (<8.01)
[2022-08-24] MEDS: Pantoprazole VIAL 40 MG VIAL IV SCH (18:40)
[2022-08-25] MEDS: Linezolid 600 MG IVPREMIX(*) 600 MG/300 ML BAG IVPB SCH ×3 (00:03→23:50)
[2022-08-25 05:53] LABS: Hematocrit 24.3 % (35-45); Mean Corpuscular Hgb Conc 32.9 g/dL (31-36); Mean Corpuscular Volume 94.2 fL (80-97); Platelet Count 703 10^3/uL (150-450); Red Blood Count 2.58 10^6/uL (3.63-4.92); Red Cell Distribution Width 21.2 % (12-17); White Blood Count 19.9 10^3/uL (3.8-11.8)
[2022-08-25 06:13] LABS: Calcium 8.6 mg/dL (8.6-10.3); Creatinine, Serum 0.42 mg/dL (0.51-0.95); Magnesium 1.8 mg/dL (1.9-2.7); eGFR CKD-EPI 109.8 (>60)
[2022-08-25 06:23] LABS: ABS Basophils 0.1 10^3/uL (0.0-0.1); ABS Eosinophils 0.3 10^3/uL (0.0-0.5); ABS Monocytes 0.9 10^3/uL (0.0-0.9); ABS Neutrophils 17.6 10^3/uL (1.5-7.6); Anisocytosis 3+; Eosinophil % 1.6 %; Hypochromasia 1+; Polychromasia 1+
[2022-08-25] MEDS ORDERED: Magnesium Sulfate IV 1GM/100ML 1 GM/100 ML BAG IV ONE (07:10)
[2022-08-25] MEDS ORDERED: Iohexol 350 (CONTRAST) 500 ML MDV IV ONE (12:43)
[2022-08-25 13:21] LABS: Urine Appearance Cloudy; Urine Bilirubin Negative (Negative); Urine Blood 3+ (Negative); Urine Color Amber; Urine Glucose Negative (Negative); Urine Ketones Negative (Negative); Urine Nitrite Negative (Negative); Urine Protein 2+(100 mg/dL) (Negative); Urine Specific Gravity 1.003 (1.002-1.030); Urine Urobilinogen Negative (Negative)
[2022-08-25 13:54] LABS: Urine Bacteria 1+ (Absent); Urine Red Blood Cell 3+(>10/hpf) (Absent); Urine Squamous Epithelial Cell Present (Absent); Urine White Blood Cell 2+(11-20/hpf) (Absent)
[2022-08-25] MEDS: Pantoprazole VIAL 40 MG VIAL IV SCH (18:27)
[2022-08-26 06:09] LABS: ABS Basophils 0.2 10^3/uL (0.0-0.1); ABS Eosinophils 0.3 10^3/uL (0.0-0.5); ABS Monocytes 0.8 10^3/uL (0.0-0.9); ABS Neutrophils 16.6 10^3/uL (1.5-7.6); Eosinophil % 1.6 %; Hematocrit 23.3 % (35-45); Hemoglobin 7.7 g/dL (11.5-14.3); Lymphocyte % 5.1 %; Mean Corpuscular Hemoglobin 31.2 pg (27-33); Mean Corpuscular Volume 94.7 fL (80-97); Mean Platelet Volume 6.8 fL (7.5-11.2); Platelet Count 700 10^3/uL (150-450); Red Blood Count 2.46 10^6/uL (3.63-4.92); Red Cell Distribution Width 21.8 % (12-17); White Blood Count 18.9 10^3/uL (3.8-11.8)
[2022-08-26 06:30] LABS: Blood Urea Nitrogen 8 mg/dL (6-24); CO2 Carbon Dioxide 22 mmol/L (22-32); Calcium 8.7 mg/dL (8.6-10.3); Chloride 106 mmol/L (101-111); Glucose 79 mg/dL (70-100); Magnesium 1.8 mg/dL (1.9-2.7); Sodium 137 mmol/L (135-145); eGFR CKD-EPI 111.1 (>60)
[2022-08-26 06:33] LABS: Anion Gap 9 mmol/L (2-16)
[2022-08-26] MEDS: Linezolid 600 MG IVPREMIX(*) 600 MG/300 ML BAG IVPB SCH (12:01)
[2022-08-26] MEDS ORDERED: Zosyn per Pharmacy NOTE FOLLOW UP SCH (13:00)
[2022-08-26] MEDS ORDERED: Piperacillin/Tazobac ADVAN 3.375 GM in NS 0.9% 100 ml BAG 100 ML IV ONE (14:00)
[2022-08-26] MEDS ORDERED: Potassium Chlor 20 meq TAB.ER PO ONE (14:49)
[2022-08-26] MEDS ORDERED: fentaNYL 100 mcg/2 ml 50 MCG/ML VIAL ONE (15:48)
[2022-08-26] MEDS ORDERED: Midazolam 5 mg/5 ml VIAL 1 mg/ml 5 ml VIAL (5 mg) ONE (15:48)
[2022-08-26] MEDS ORDERED: Iohexol 300 (CONTRAST) 10 ML SDV ONE (15:48)
[2022-08-26 17:45] LABS: Body Fluid Appearance Cloudy; Body Fluid Color Yellow; Body Fluid Source Peritonial Fluid
[2022-08-26 18:01] LABS: Body Fluid Band 1 %; Body Fluid Total Cells Counted 200
[2022-08-26 18:02] LABS: Body Fluid WBC 66490 /mcL
[2022-08-26] MEDS: Pantoprazole VIAL 40 MG VIAL IV SCH (18:13)
[2022-08-26] MEDS: ZOSYN 3.375 GM Q8H per EXTENDED INFUSION IV SCH (18:16)
[2022-08-27] MEDS: Linezolid 600 MG IVPREMIX(*) 600 MG/300 ML BAG IVPB SCH ×2 (01:30→13:26)
[2022-08-27] MEDS: ZOSYN 3.375 GM Q8H per EXTENDED INFUSION IV SCH ×3 (03:08→18:07)
[2022-08-27] MEDS ORDERED: Lactated Ringers 1000 ml BAG 1,000 ML IV ONE (03:24)
[2022-08-27 06:17] LABS: Hemoglobin 7.6 g/dL (11.5-14.3); Mean Corpuscular Hemoglobin 30.7 pg (27-33); Mean Corpuscular Hgb Conc 33.1 g/dL (31-36); Mean Corpuscular Volume 92.6 fL (80-97); Mean Platelet Volume 6.7 fL (7.5-11.2); Platelet Count 673 10^3/uL (150-450); Red Blood Count 2.49 10^6/uL (3.63-4.92); Red Cell Distribution Width 20.5 % (12-17); White Blood Count 24.7 10^3/uL (3.8-11.8)
[2022-08-27 06:32] LABS: Calcium 8.5 mg/dL (8.6-10.3); Creatinine, Serum 0.66 mg/dL (0.51-0.95); Magnesium 1.6 mg/dL (1.9-2.7); Potassium 3.7 mmol/L (3.5-5.0); eGFR CKD-EPI 98.5 (>60)
[2022-08-27 06:36] LABS: ABS Basophils 0.1 10^3/uL (0.0-0.1); ABS Eosinophils 0.1 10^3/uL (0.0-0.5); ABS Lymphocytes 0.4 10^3/uL (1.0-4.8); ABS Monocytes 0.4 10^3/uL (0.0-0.9); ABS Neutrophils 23.7 10^3/uL (1.5-7.6); Eosinophil % 0.6 %; Lymphocyte % 1.4 %
[2022-08-27] MEDS ORDERED: Magnesium Sulfate 2 gm BAG 2 GM/50 ML BAG IVPB ONE (10:38)
[2022-08-27] MEDS ORDERED: Potassium Chlor 20 meq TAB.ER PO ONE (10:38)
[2022-08-27] MEDS: Pantoprazole VIAL 40 MG VIAL IV SCH (18:15)
[2022-08-27] MEDS ORDERED: NS 0.9% 250 ml 250 ML IV ONE (23:20)
[2022-08-27 23:58] LABS: Hematocrit 19.4 % (35-45); Hemoglobin 6.4 g/dL (11.5-14.3)
[2022-08-28] MEDS: Linezolid 600 MG IVPREMIX(*) 600 MG/300 ML BAG IVPB SCH ×3 (00:13→23:31)
[2022-08-28] MEDS: ZOSYN 3.375 GM Q8H per EXTENDED INFUSION IV SCH ×3 (01:27→17:38)
[2022-08-28 04:18] LABS: ABS Eosinophils 0.6 10^3/uL (0.0-0.5); ABS Lymphocytes 0.4 10^3/uL (1.0-4.8); ABS Monocytes 0.4 10^3/uL (0.0-0.9); ABS Neutrophils 15.3 10^3/uL (1.5-7.6); Eosinophil % 3.6 %; Hematocrit 27.8 % (35-45); Hemoglobin 9.2 g/dL (11.5-14.3); Lymphocyte % 2.2 %; Mean Corpuscular Hemoglobin 31.1 pg (27-33); Mean Corpuscular Volume 94.3 fL (80-97); Mean Platelet Volume 6.6 fL (7.5-11.2); Platelet Count 561 10^3/uL (150-450); Red Blood Count 2.95 10^6/uL (3.63-4.92); Red Cell Distribution Width 18.3 % (12-17); White Blood Count 16.7 10^3/uL (3.8-11.8)
[2022-08-28 04:38] LABS: Calcium 8.2 mg/dL (8.6-10.3); Creatinine, Serum 0.52 mg/dL (0.51-0.95); Magnesium 1.9 mg/dL (1.9-2.7); Potassium 3.3 mmol/L (3.5-5.0); eGFR CKD-EPI 104.3 (>60)
[2022-08-28] MEDS: Pantoprazole VIAL 40 MG VIAL IV SCH (16:41)
[2022-08-28 17:05] LABS: Hematocrit 24.6 % (35-45); Hemoglobin 8.2 g/dL (11.5-14.3)
[2022-08-29] MEDS: ZOSYN 3.375 GM Q8H per EXTENDED INFUSION IV SCH ×2 (01:29→09:55)
[2022-08-29 05:59] LABS: ABS Eosinophils 0.6 10^3/uL (0.0-0.5); ABS Lymphocytes 0.5 10^3/uL (1.0-4.8); ABS Monocytes 0.4 10^3/uL (0.0-0.9); ABS Neutrophils 13.3 10^3/uL (1.5-7.6); ABS Nucleated RBC 0.01 10^3/ul; Eosinophil % 3.9 %; Hematocrit 25.3 % (35-45); Hemoglobin 8.5 g/dL (11.5-14.3); Lymphocyte % 3.2 %; Mean Corpuscular Hemoglobin 30.8 pg (27-33); Mean Corpuscular Hgb Conc 33.5 g/dL (31-36); Mean Corpuscular Volume 92.1 fL (80-97); Mean Platelet Volume 6.8 fL (7.5-11.2); Platelet Count 557 10^3/uL (150-450); Red Blood Count 2.74 10^6/uL (3.63-4.92); Red Cell Distribution Width 18.9 % (12-17); White Blood Count 14.8 10^3/uL (3.8-11.8)
[2022-08-29 06:18] LABS: ALT 17 U/L (7-52); AST 22 U/L (13-39); Albumin 2.5 g/dL (3.2-5.2); Albumin/Globulin Ratio 0.8 (1-3); Alkaline Phosphatase 168 U/L (35-149); Anion Gap 9 mmol/L (2-16); Blood Urea Nitrogen 10 mg/dL (6-24); CO2 Carbon Dioxide 22 mmol/L (22-32); Calcium 8.3 mg/dL (8.6-10.3); Chloride 111 mmol/L (101-111); Glucose 81 mg/dL (70-100); Magnesium 1.6 mg/dL (1.9-2.7); Potassium 3.4 mmol/L (3.5-5.0); Sodium 142 mmol/L (135-145); Total Protein 5.5 g/dL (6.4-8.9); eGFR CKD-EPI 105.3 (>60)
[2022-08-29] MEDS ORDERED: KCL 20 MEQ/100 ML IVPREMIX 20 MEQ/100 ML BAG IV ONE (11:53)
[2022-08-29] MEDS ORDERED: Magnesium Sulfate IV 3 GM in NS 0.9% 100 ml BAG 100 ML IVPB ONE (11:53)
[2022-08-29] MEDS: Linezolid 600 MG IVPREMIX(*) 600 MG/300 ML BAG IVPB SCH (11:58)
[2022-08-29] MEDS ORDERED: DAPTOmycin SDV 750 MG in NS 0.9% 50 ML 50 ML IVPB SCH (16:00)
[2022-08-29] MEDS: Pantoprazole VIAL 40 MG VIAL IV SCH (17:52)
[2022-08-30 09:38] LABS: C Reactive Protein 78.86 mg/L (<8.01); Creatine Kinase < 10 U/L (10-223)
[2022-08-30 13:19] VITALS: BP 134/87
== END 2022-08-30 14:00 | DRG 329 ==
LOC: ED 13:49 → EDHOLD 13:49 → MED 07-27 12:32 → SUATTDRO 07-28 11:27 → ICU 08-01 23:01 → SSU 08-20 18:26
PROVIDERS: ADMIT Internal Medicine; ATTEND Student in an Organized Health Care Education/Training Program

== ENCOUNTER 2022-08-23 12:59 | Inpatient (IN) ==
[2022-08-30] MEDS ORDERED: Senna TAB 8.6 mg TAB PO PRN (14:56)
[2022-08-30] MEDS: DAPTOmycin SDV 750 MG in NS 0.9% 50 ML 50 ML IVPB SCH (16:31)
[2022-08-31 06:19] LABS: ABS Basophils 0.1 10^3/uL (0.0-0.1); ABS Eosinophils 0.3 10^3/uL (0.0-0.5); ABS Lymphocytes 1.2 10^3/uL (1.0-4.8); ABS Monocytes 0.6 10^3/uL (0.0-0.9); ABS Neutrophils 10.2 10^3/uL (1.5-7.6); ABS Nucleated RBC 0.01 10^3/ul; Eosinophil % 2.4 %; Hematocrit 25.2 % (35-45); Hemoglobin 8.5 g/dL (11.5-14.3); Lymphocyte % 9.9 %; Mean Corpuscular Hemoglobin 31.2 pg (27-33); Mean Corpuscular Hgb Conc 33.9 g/dL (31-36); Mean Corpuscular Volume 92.1 fL (80-97); Mean Platelet Volume 6.5 fL (7.5-11.2); Platelet Count 509 10^3/uL (150-450); Red Blood Count 2.73 10^6/uL (3.63-4.92); Red Cell Distribution Width 19.8 % (12-17); White Blood Count 12.4 10^3/uL (3.8-11.8)
[2022-08-31] MEDS: DAPTOmycin SDV 750 MG in NS 0.9% 50 ML 50 ML IVPB SCH (16:57)
[2022-09-01] MEDS: DAPTOmycin SDV 750 MG in NS 0.9% 50 ML 50 ML IVPB SCH (15:48)
[2022-09-02 06:45] LABS: ABS Basophils 0.1 10^3/uL (0.0-0.1); ABS Eosinophils 0.2 10^3/uL (0.0-0.5); ABS Lymphocytes 1.7 10^3/uL (1.0-4.8); ABS Monocytes 1.3 10^3/uL (0.0-0.9); ABS Neutrophils 13.8 10^3/uL (1.5-7.6); ABS Nucleated RBC 0.01 10^3/ul; Eosinophil % 1.2 %; Hematocrit 25.3 % (35-45); Hemoglobin 8.5 g/dL (11.5-14.3); Lymphocyte % 9.9 %; Mean Corpuscular Hemoglobin 31.5 pg (27-33); Mean Corpuscular Hgb Conc 33.5 g/dL (31-36); Mean Platelet Volume 6.5 fL (7.5-11.2); Nucleated Red Blood Cells % 0.1 /100 WBC (0.0-0.4); Platelet Count 504 10^3/uL (150-450); Red Blood Count 2.69 10^6/uL (3.63-4.92); Red Cell Distribution Width 19.5 % (12-17); White Blood Count 17.1 10^3/uL (3.8-11.8)
[2022-09-02 07:02] LABS: Albumin 2.8 g/dL (3.2-5.2); C Reactive Protein 96.75 mg/L (<8.01); Calcium 8.6 mg/dL (8.6-10.3); Creatinine, Serum 0.44 mg/dL (0.51-0.95); Globulin 2.9 g/dL (2-4); Potassium 3.8 mmol/L (3.5-5.0); Total Bilirubin 0.9 mg/dL (0.2-1.0); Total Protein 5.7 g/dL (6.4-8.9); eGFR CKD-EPI 108.6 (>60)
[2022-09-02] MEDS: DAPTOmycin SDV 750 MG in NS 0.9% 50 ML 50 ML IVPB SCH (17:04)
[2022-09-03 06:34] LABS: Hematocrit 25.1 % (35-45); Hemoglobin 8.3 g/dL (11.5-14.3); Mean Corpuscular Hemoglobin 31.1 pg (27-33); Mean Corpuscular Hgb Conc 32.9 g/dL (31-36); Mean Corpuscular Volume 94.5 fL (80-97); Mean Platelet Volume 6.4 fL (7.5-11.2); Platelet Count 527 10^3/uL (150-450); Red Blood Count 2.66 10^6/uL (3.63-4.92); White Blood Count 16.8 10^3/uL (3.8-11.8)
[2022-09-03 07:03] LABS: ABS Basophils 0.1 10^3/uL (0.0-0.1); ABS Eosinophils 0.3 10^3/uL (0.0-0.5); ABS Lymphocytes 1.8 10^3/uL (1.0-4.8); ABS Monocytes 1.3 10^3/uL (0.0-0.9); ABS Neutrophils 13.2 10^3/uL (1.5-7.6); ABS Nucleated RBC 0.01 10^3/ul; Lymphocyte % 10.9 %; Nucleated Red Blood Cells % 0.1 /100 WBC (0.0-0.4)
[2022-09-03] MEDS: DAPTOmycin SDV 750 MG in NS 0.9% 50 ML 50 ML IVPB SCH (18:05)
[2022-09-04] MEDS: DAPTOmycin SDV 750 MG in NS 0.9% 50 ML 50 ML IVPB SCH (16:11)
[2022-09-05] MEDS: DAPTOmycin SDV 750 MG in NS 0.9% 50 ML 50 ML IVPB SCH (17:06)
[2022-09-06] MEDS: DAPTOmycin SDV 750 MG in NS 0.9% 50 ML 50 ML IVPB SCH (16:08)
[2022-09-07] MEDS ORDERED: Al Hydrox/Mg Hydrox/Simet LIQ 30 ML UDC PO PRN (06:40)
[2022-09-07] MEDS ORDERED: Ondansetron ODT 4 mg TAB 4 MG TAB PO PRN (06:41)
[2022-09-07] MEDS: DAPTOmycin SDV 750 MG in NS 0.9% 50 ML 50 ML IVPB SCH (16:26)
[2022-09-08] MEDS: DAPTOmycin SDV 750 MG in NS 0.9% 50 ML 50 ML IVPB SCH (16:09)
[2022-09-09 07:45] LABS: Albumin 2.7 g/dL (3.2-5.2); Albumin/Globulin Ratio 0.7 (1-3); C Reactive Protein 145.37 mg/L (<8.01); Calcium 8.8 mg/dL (8.6-10.3); Creatinine, Serum 0.52 mg/dL (0.51-0.95); Globulin 3.8 g/dL (2-4); Potassium 4.2 mmol/L (3.5-5.0); Total Bilirubin 0.7 mg/dL (0.2-1.0); Total Protein 6.5 g/dL (6.4-8.9); eGFR CKD-EPI 104.3 (>60)
[2022-09-09 09:08] LABS: Hematocrit 25.1 % (35-45); Hemoglobin 8.2 g/dL (11.5-14.3); Mean Corpuscular Hemoglobin 31.2 pg (27-33); Mean Corpuscular Hgb Conc 32.7 g/dL (31-36); Mean Corpuscular Volume 95.3 fL (80-97); Mean Platelet Volume 7.5 fL (7.5-11.2); Platelet Count 677 10^3/uL (150-450); Red Blood Count 2.63 10^6/uL (3.63-4.92); Red Cell Distribution Width 19.4 % (12-17); White Blood Count 18.2 10^3/uL (3.8-11.8)
[2022-09-09 09:51] LABS: ABS Basophils 0.1 10^3/uL (0.0-0.1); ABS Eosinophils 0.2 10^3/uL (0.0-0.5); ABS Lymphocytes 1.7 10^3/uL (1.0-4.8); ABS Monocytes 1.6 10^3/uL (0.0-0.9); ABS Neutrophils 14.5 10^3/uL (1.5-7.6); ABS Nucleated RBC 0.02 10^3/ul; Eosinophil % 1.2 %; Lymphocyte % 9.5 %; Nucleated Red Blood Cells % 0.1 /100 WBC (0.0-0.4)
[2022-09-09] MEDS: DAPTOmycin SDV 750 MG in NS 0.9% 50 ML 50 ML IVPB SCH (17:56)
[2022-09-10] MEDS ORDERED: Iohexol 350 (CONTRAST) 500 ML MDV IV ONE (11:41)
[2022-09-10] MEDS: DAPTOmycin SDV 750 MG in NS 0.9% 50 ML 50 ML IVPB SCH (16:59)
[2022-09-11] MEDS: DAPTOmycin SDV 750 MG in NS 0.9% 50 ML 50 ML IVPB SCH (16:04)
[2022-09-12 06:20] LABS: ABS Basophils 0.1 10^3/uL (0.0-0.1); ABS Eosinophils 0.7 10^3/uL (0.0-0.5); ABS Lymphocytes 0.9 10^3/uL (1.0-4.8); ABS Monocytes 0.7 10^3/uL (0.0-0.9); ABS Neutrophils 11.6 10^3/uL (1.5-7.6); ABS Nucleated RBC 0.01 10^3/ul; Eosinophil % 5.2 %; Hematocrit 25.4 % (35-45); Hemoglobin 8.4 g/dL (11.5-14.3); Lymphocyte % 6.3 %; Mean Corpuscular Hemoglobin 30.4 pg (27-33); Mean Corpuscular Hgb Conc 33.1 g/dL (31-36); Mean Corpuscular Volume 91.9 fL (80-97); Nucleated Red Blood Cells % 0.1 /100 WBC (0.0-0.4); Platelet Count 680 10^3/uL (150-450); Red Blood Count 2.76 10^6/uL (3.63-4.92); Red Cell Distribution Width 19.3 % (12-17)
[2022-09-12 13:30] LABS: INR 1.36 (0.88-1.18)
[2022-09-12] MEDS: DAPTOmycin SDV 750 MG in NS 0.9% 50 ML 50 ML IVPB SCH (16:45)
[2022-09-13] MEDS: DAPTOmycin SDV 750 MG in NS 0.9% 50 ML 50 ML IVPB SCH (16:40)
[2022-09-14] MEDS: DAPTOmycin SDV 750 MG in NS 0.9% 50 ML 50 ML IVPB SCH (16:18)
[2022-09-15] MEDS: DAPTOmycin SDV 750 MG in NS 0.9% 50 ML 50 ML IVPB SCH (14:53)
[2022-09-16 04:42] VITALS: BP 116/75
[2022-09-16 05:13] LABS: Hematocrit 25.5 % (35-45); Hemoglobin 8.4 g/dL (11.5-14.3); Mean Corpuscular Hemoglobin 31.1 pg (27-33); Mean Corpuscular Hgb Conc 33.2 g/dL (31-36); Mean Corpuscular Volume 93.8 fL (80-97); Mean Platelet Volume 6.8 fL (7.5-11.2); Platelet Count 801 10^3/uL (150-450); Red Blood Count 2.71 10^6/uL (3.63-4.92); Red Cell Distribution Width 21.2 % (12-17); White Blood Count 19.2 10^3/uL (3.8-11.8)
[2022-09-16 06:01] LABS: Albumin 2.5 g/dL (3.2-5.2); Albumin/Globulin Ratio 0.7 (1-3); C Reactive Protein 81.13 mg/L (<8.01); Calcium 8.6 mg/dL (8.6-10.3); Creatinine, Serum 0.53 mg/dL (0.51-0.95); Globulin 3.8 g/dL (2-4); Potassium 3.8 mmol/L (3.5-5.0); Total Bilirubin 0.5 mg/dL (0.2-1.0); Total Protein 6.3 g/dL (6.4-8.9); eGFR CKD-EPI 103.9 (>60)
[2022-09-16 06:21] LABS: ABS Basophils 0.1 10^3/uL (0.0-0.1); ABS Eosinophils 0.4 10^3/uL (0.0-0.5); ABS Lymphocytes 1.9 10^3/uL (1.0-4.8); ABS Monocytes 1.2 10^3/uL (0.0-0.9); ABS Neutrophils 15.6 10^3/uL (1.5-7.6); Eosinophil % 2.2 %
[2022-09-16] MEDS: DAPTOmycin SDV 750 MG in NS 0.9% 50 ML 50 ML IVPB SCH (11:35)
== END 2022-09-16 15:10 | disposition home or self-care (01) | DRG 391 ==
LOC: PMRU 08-30 14:26
PROVIDERS: ADMIT Physical Medicine & Rehabilitation; ATTEND Physical Medicine & Rehabilitation

== ENCOUNTER 2023-09-17 13:17 | Observation (INO) ==
[2023-09-17 15:09] LABS: ABS Basophils 0.1 10^3/uL (0.0-0.1); ABS Eosinophils 0.1 10^3/uL (0.0-0.5); ABS Lymphocytes 1.7 10^3/uL (1.0-4.8); ABS Monocytes 0.9 10^3/uL (0.0-0.9); ABS Nucleated RBC 0.01 10^3/ul; Eosinophil % 0.4 %; Hematocrit 40.9 % (35-45); Hemoglobin 13.8 g/dL (11.5-14.3); Lymphocyte % 9.1 %; Mean Corpuscular Hemoglobin 32.7 pg (27-33); Mean Corpuscular Hgb Conc 33.7 g/dL (31-36); Mean Platelet Volume 7.7 fL (7.5-11.2); Nucleated Red Blood Cells % 0.1 %/100WBC (0.0-0.8); Platelet Count 568 10^3/uL (150-450); Red Blood Count 4.21 10^6/uL (3.63-4.92); White Blood Count 18.8 10^3/uL (3.8-11.8)
[2023-09-17 15:56] LABS: Albumin/Globulin Ratio 1.1 (1-3); C Reactive Protein 6.99 mg/L (<8.01); Calcium 11.3 mg/dL (8.6-10.3); Creatinine, Serum 2.03 mg/dL (0.51-0.95); Globulin 4.7 g/dL (2-4); Potassium 5.5 mmol/L (3.5-5.0); Total Bilirubin 0.8 mg/dL (0.2-1.0); Total Protein 9.7 g/dL (6.4-8.9); eGFR CKD-EPI 26.9 (>60)
[2023-09-17] MEDS: Piperacillin/Tazobac 3.375 BAG 3.375 GM/100 ML BAG IV ONE (16:25)
[2023-09-17] MEDS: NS 0.9% 1000 ml BAG 1,000 ML IV ONE (16:26)
[2023-09-17 16:48] LABS: Urine Appearance Extra Turbid; Urine Bacteria Absent /HPF (Absent); Urine Bilirubin Negative (Negative); Urine Blood 2+ (Negative); Urine Glucose Negative (Negative); Urine Ketones Negative (Negative); Urine Nitrite Negative (Negative); Urine Protein 3+ (>=300 mg/dL) (Negative); Urine Red Blood Cell Trace(0-2/hpf) /HPF (0-Trace); Urine Specific Gravity 1.015 (1.002-1.030); Urine Urobilinogen Negative (Negative); Urine White Blood Cell Absent /HPF (0-Trace); Urine pH 6.5 (5.0-8.0)
[2023-09-17 17:02] LABS: Urine Appearance Extra Turbid; Urine Bacteria Absent /HPF (Absent); Urine Bilirubin Negative (Negative); Urine Blood 2+ (Negative); Urine Glucose Negative (Negative); Urine Ketones Negative (Negative); Urine Nitrite Negative (Negative); Urine Protein 3+ (>=300 mg/dL) (Negative); Urine Red Blood Cell Trace(0-2/hpf) /HPF (0-Trace); Urine Specific Gravity 1.015 (1.002-1.030); Urine Urobilinogen Negative (Negative); Urine White Blood Cell Trace(0-5/hpf) /HPF (0-Trace); Urine pH 6.5 (5.0-8.0)
[2023-09-17 17:33] LABS: Urine Color Light-Yellow
[2023-09-17 17:35] LABS: Urine Color Yellow
[2023-09-17] MEDS: Lactated Ringers 1000 ml BAG 1,000 ML IV ONE ×2 (18:11→20:45)
[2023-09-17] MEDS: Morphine 2 MG/ML SYRINGE IV ONE (20:21)
[2023-09-17] MEDS: Sodium Bicarb 650 mg (ANTACID) TAB PO SCH (20:45)
[2023-09-17 21:05] LABS: Urine Osmo 242 mOsm/kg (150-1150)
[2023-09-17] MEDS: Heparin 5000 UNITS/ML 1 mL VIAL SUBCUT SCH (21:29)
[2023-09-17 21:43] LABS: ABS Lymphocytes 0.3 10^3/uL (1.0-4.8); ABS Monocytes 0.2 10^3/uL (0.0-0.9); ABS Neutrophils 17.5 10^3/uL (1.5-7.6); ABS Nucleated RBC 0.01 10^3/ul; Eosinophil % 0.2 %; Hematocrit 36.4 % (35-45); Hemoglobin 12.1 g/dL (11.5-14.3); Lymphocyte % 1.5 %; Mean Corpuscular Hemoglobin 32.2 pg (27-33); Mean Corpuscular Hgb Conc 33.2 g/dL (31-36); Mean Corpuscular Volume 97.2 fL (80-97); Mean Platelet Volume 7.3 fL (7.5-11.2); Nucleated Red Blood Cells % 0.1 %/100WBC (0.0-0.8); Platelet Count 385 10^3/uL (150-450); Red Blood Count 3.74 10^6/uL (3.63-4.92)
[2023-09-17 21:47] LABS: Anion Gap 10 mmol/L (2-16); Blood Urea Nitrogen 65 mg/dL (6-24); CO2 Carbon Dioxide 18 mmol/L (22-32); Calcium 9.2 mg/dL (8.6-10.3); Chloride 99 mmol/L (101-111); Creatinine, Serum 1.72 mg/dL (0.51-0.95); Glucose 92 mg/dL (70-100); Sodium 127 mmol/L (135-145); eGFR CKD-EPI 32.8 (>60)
[2023-09-17 21:57] LABS: Osmolality Serum 296 mOsm/kg (275-295)
[2023-09-17 22:21] LABS: Creatinine, Serum 1.74 mg/dL (0.51-0.95); eGFR CKD-EPI 32.4 (>60)
[2023-09-18] MEDS: Morphine 2 MG/ML SYRINGE IV PRN (01:18)
[2023-09-18 07:52] LABS: ABS Basophils 0.1 10^3/uL (0.0-0.1); ABS Eosinophils 0.4 10^3/uL (0.0-0.5); ABS Lymphocytes 0.3 10^3/uL (1.0-4.8); ABS Monocytes 0.7 10^3/uL (0.0-0.9); ABS Neutrophils 16.4 10^3/uL (1.5-7.6); Eosinophil % 2.2 %; Hematocrit 31.3 % (35-45); Hemoglobin 10.7 g/dL (11.5-14.3); Lymphocyte % 1.8 %; Mean Corpuscular Hemoglobin 33.2 pg (27-33); Mean Corpuscular Hgb Conc 34.2 g/dL (31-36); Mean Platelet Volume 7.7 fL (7.5-11.2); Platelet Count 283 10^3/uL (150-450); Red Blood Count 3.22 10^6/uL (3.63-4.92); Red Cell Distribution Width 15.6 % (12-17); White Blood Count 17.8 10^3/uL (3.8-11.8)
[2023-09-18 08:24] LABS: Albumin 3.3 g/dL (3.2-5.2); Albumin/Globulin Ratio 1.1 (1-3); Calcium 8.9 mg/dL (8.6-10.3); Creatinine, Serum 1.54 mg/dL (0.51-0.95); Magnesium 1.5 mg/dL (1.9-2.7); Potassium 4.6 mmol/L (3.5-5.0); Total Bilirubin 1.3 mg/dL (0.2-1.0); Total Protein 6.3 g/dL (6.4-8.9); eGFR CKD-EPI 37.5 (>60)
[2023-09-18] MEDS: Magnesium Sulf 4 GM/100 ML IV 4,000 MG/100 ML BAG IVPB ONE (09:23)
[2023-09-18] MEDS: Psyllium PAK PO SCH ×2 (09:24→20:27)
[2023-09-18] MEDS: NS 0.9% 1000 ml BAG 1,000 ML IV SCH (13:46)
[2023-09-18 15:34] LABS: ABS Basophils 0.1 10^3/uL (0.0-0.1); ABS Eosinophils 0.6 10^3/uL (0.0-0.5); ABS Lymphocytes 0.5 10^3/uL (1.0-4.8); ABS Monocytes 0.5 10^3/uL (0.0-0.9); ABS Neutrophils 10.9 10^3/uL (1.5-7.6); Eosinophil % 5.1 %; Hematocrit 29.4 % (35-45); Hemoglobin 9.8 g/dL (11.5-14.3); Lymphocyte % 4.2 %; Mean Corpuscular Hemoglobin 32.3 pg (27-33); Mean Corpuscular Hgb Conc 33.2 g/dL (31-36); Mean Corpuscular Volume 97.2 fL (80-97); Mean Platelet Volume 7.4 fL (7.5-11.2); Platelet Count 279 10^3/uL (150-450); Red Blood Count 3.02 10^6/uL (3.63-4.92); Red Cell Distribution Width 15.7 % (12-17); White Blood Count 12.7 10^3/uL (3.8-11.8)
[2023-09-18 19:53] LABS: Calcium 8.8 mg/dL (8.6-10.3); Creatinine, Serum 1.38 mg/dL (0.51-0.95); Potassium 4.2 mmol/L (3.5-5.0); eGFR CKD-EPI 42.7 (>60)
[2023-09-18] MEDS ORDERED: Lactated Ringers 1000 ml BAG 1,000 ML IV SCH (23:00)
[2023-09-19] MEDS: Lactated Ringers 1000 ml BAG 1,000 ML IV ONE (00:01)
[2023-09-19] MEDS: Lactated Ringers 1000 ml BAG 500 ML IV ONE (00:22)
[2023-09-19] MEDS: Lactated Ringers 1000 ml BAG 1,000 ML IV SCH (00:22)
[2023-09-19 07:34] LABS: Urine Osmo 449 mOsm/kg (150-1150)
[2023-09-19 07:59] LABS: Osmolality Serum 298 mOsm/kg (275-295)
[2023-09-19 08:14] LABS: ABS Basophils 0.1 10^3/uL (0.0-0.1); ABS Eosinophils 0.7 10^3/uL (0.0-0.5); ABS Lymphocytes 1.1 10^3/uL (1.0-4.8); ABS Monocytes 0.7 10^3/uL (0.0-0.9); ABS Neutrophils 6.8 10^3/uL (1.5-7.6); ABS Nucleated RBC 0.01 10^3/ul; Eosinophil % 7.3 %; Hematocrit 27.4 % (35-45); Hemoglobin 9.4 g/dL (11.5-14.3); Lymphocyte % 11.9 %; Mean Corpuscular Hemoglobin 33.6 pg (27-33); Mean Corpuscular Hgb Conc 34.4 g/dL (31-36); Mean Corpuscular Volume 97.8 fL (80-97); Mean Platelet Volume 8.1 fL (7.5-11.2); Nucleated Red Blood Cells % 0.1 %/100WBC (0.0-0.8); Platelet Count 242 10^3/uL (150-450); White Blood Count 9.3 10^3/uL (3.8-11.8)
[2023-09-19 08:40] LABS: Calcium 8.6 mg/dL (8.6-10.3); Creatinine, Serum 1.53 mg/dL (0.51-0.95); Magnesium 1.9 mg/dL (1.9-2.7); Phosphorus 3.1 mg/dL (2.5-5.0); Potassium 4.2 mmol/L (3.5-5.0); eGFR CKD-EPI 37.8 (>60)
[2023-09-19] MEDS: Magnesium Sulfate IV 1GM/100ML 1 GM/100 ML BAG IV ONE (12:45)
[2023-09-19 14:35] VITALS: BP 105/72
== END 2023-09-19 15:30 | disposition home or self-care (01) ==
LOC: EDHOLD 13:17 → ED 13:17 → SUATTDRO 18:54 → MED 23:18
PROVIDERS: ADMIT Internal Medicine; ATTEND Internal Medicine

== ENCOUNTER 2024-01-02 14:16 | Observation (INO) ==
[2024-01-02 15:53] LABS: Urine Appearance Turbid; Urine Bilirubin Negative (Negative); Urine Blood Negative (Negative); Urine Color Yellow; Urine Glucose Negative (Negative); Urine Ketones Negative (Negative); Urine Nitrite Negative (Negative); Urine Protein Trace (Negative); Urine Specific Gravity 1.018 (1.002-1.030); Urine Urobilinogen Negative (Negative); Urine pH 5.5 (5.0-8.0)
[2024-01-02 17:48] LABS: ABS Basophils 0.1 10^3/uL (0.0-0.1); ABS Eosinophils 0.3 10^3/uL (0.0-0.5); ABS Lymphocytes 1.1 10^3/uL (1.0-4.8); ABS Monocytes 0.8 10^3/uL (0.0-0.9); ABS Neutrophils 8.6 10^3/uL (1.5-7.6); Eosinophil % 2.5 %; Hematocrit 40.5 % (35-45); Hemoglobin 13.2 g/dL (11.5-14.3); Mean Corpuscular Hemoglobin 31.9 pg (27-33); Mean Corpuscular Hgb Conc 32.6 g/dL (31-36); Mean Corpuscular Volume 97.8 fL (80-97); Mean Platelet Volume 7.4 fL (7.5-11.2); Platelet Count 439 10^3/uL (150-450); Red Blood Count 4.14 10^6/uL (3.63-4.92); Red Cell Distribution Width 13.5 % (12-17); White Blood Count 10.8 10^3/uL (3.8-11.8)
[2024-01-02] MEDS: Lactated Ringers 1000 ml BAG 1,000 ML IV ONE ×2 (17:50→23:41)
[2024-01-02 18:14] LABS: ALT 68 U/L (7-52); Albumin 4.9 g/dL (3.2-5.2); Albumin/Globulin Ratio 1.3 (1-3); Alkaline Phosphatase 200 U/L (35-149); Anion Gap 13 mmol/L (2-16); Blood Urea Nitrogen 44 mg/dL (6-24); CO2 Carbon Dioxide 16 mmol/L (22-32); Calcium 10.4 mg/dL (8.6-10.3); Chloride 97 mmol/L (101-111); Creatinine, Serum 2.71 mg/dL (0.51-0.95); Globulin 3.9 g/dL (2-4); Glucose 102 mg/dL (70-100); Sodium 126 mmol/L (135-145); Total Bilirubin 0.7 mg/dL (0.2-1.0); Total Protein 8.8 g/dL (6.4-8.9)
[2024-01-02 18:32] LABS: Alcohol, S 17 mg/dL (<13)
[2024-01-02 19:31] LABS: Magnesium 1.5 mg/dL (1.9-2.7); Phosphorus 3.9 mg/dL (2.5-5.0); Potassium Redraw 5.5 mmol/L (3.5-5.0)
[2024-01-02] MEDS: oxyCODONE SR 10 mg TAB PO ONE (19:40)
[2024-01-02] MEDS: cefTRIAXone 1 gm/50 mL D5W 1 GM/50 ML BAG IV ONE (19:53)
[2024-01-02 20:23] LABS: C Reactive Protein 7.36 mg/L (<8.01)
[2024-01-02] MEDS: Magnesium Sulf 4 GM/100 ML IV 4,000 MG/100 ML BAG IVPB ONE (20:42)
[2024-01-02 22:09] LABS: Osmolality Serum 277 mOsm/kg (275-295)
[2024-01-03] MEDS: SODIUM ZIRCONIUM CYCLOSILICATE 10 GM PACKET PO SCH (00:22)
[2024-01-03] MEDS: Lactated Ringers 1000 ml BAG 1,000 ML IV SCH (02:15)
[2024-01-03] MEDS: Magnesium Sulfate IV 1GM/100ML 1 GM/100 ML BAG IV ONE (05:17)
[2024-01-03 06:10] LABS: ABS Basophils 0.1 10^3/uL (0.0-0.1); ABS Eosinophils 0.4 10^3/uL (0.0-0.5); ABS Lymphocytes 1.2 10^3/uL (1.0-4.8); ABS Monocytes 0.9 10^3/uL (0.0-0.9); ABS Neutrophils 5.9 10^3/uL (1.5-7.6); Eosinophil % 4.2 %; Hematocrit 31.3 % (35-45); Hemoglobin 10.6 g/dL (11.5-14.3); Lymphocyte % 13.8 %; Mean Corpuscular Hemoglobin 33.1 pg (27-33); Mean Corpuscular Hgb Conc 33.9 g/dL (31-36); Mean Corpuscular Volume 97.5 fL (80-97); Mean Platelet Volume 7.2 fL (7.5-11.2); Platelet Count 346 10^3/uL (150-450); Red Blood Count 3.21 10^6/uL (3.63-4.92); Red Cell Distribution Width 13.2 % (12-17); White Blood Count 8.4 10^3/uL (3.8-11.8)
[2024-01-03 06:47] LABS: Albumin 3.6 g/dL (3.2-5.2); Albumin/Globulin Ratio 1.4 (1-3); Calcium 9.4 mg/dL (8.6-10.3); Creatinine, Serum 2.23 mg/dL (0.51-0.95); Globulin 2.6 g/dL (2-4); Magnesium 3.9 mg/dL (1.9-2.7); Potassium 4.8 mmol/L (3.5-5.0); Total Bilirubin 0.8 mg/dL (0.2-1.0); Total Protein 6.2 g/dL (6.4-8.9)
[2024-01-03] MEDS ORDERED: cefTRIAXone 1 gm/50 mL D5W 1 GM/50 ML BAG IV SCH (20:00)
[2024-01-04 06:32] LABS: ABS Basophils 0.1 10^3/uL (0.0-0.1); ABS Eosinophils 0.3 10^3/uL (0.0-0.5); ABS Monocytes 0.7 10^3/uL (0.0-0.9); ABS Neutrophils 6.1 10^3/uL (1.5-7.6); Eosinophil % 4.2 %; Hemoglobin 10.9 g/dL (11.5-14.3); Lymphocyte % 12.2 %; Mean Corpuscular Hemoglobin 32.7 pg (27-33); Mean Corpuscular Hgb Conc 33.1 g/dL (31-36); Mean Corpuscular Volume 98.9 fL (80-97); Mean Platelet Volume 7.4 fL (7.5-11.2); Platelet Count 369 10^3/uL (150-450); Red Blood Count 3.33 10^6/uL (3.63-4.92); Red Cell Distribution Width 13.2 % (12-17); White Blood Count 8.2 10^3/uL (3.8-11.8)
[2024-01-04 06:48] LABS: Calcium 8.9 mg/dL (8.6-10.3); Creatinine, Serum 1.69 mg/dL (0.51-0.95); Potassium 4.4 mmol/L (3.5-5.0); eGFR CKD-EPI 33.5 (>60)
[2024-01-04] MEDS: Psyllium PAK PO SCH (08:36)
[2024-01-04 10:13] VITALS: BP 108/51
== END 2024-01-04 11:15 | disposition home or self-care (01) ==
LOC: ED 14:16 → EDHOLD 14:16 → SUATTDRO 19:41 → ICU 19:57 → EDHOLD 21:06 → MEDTELE 22:00
PROVIDERS: ADMIT Student in an Organized Health Care Education/Training Program; ATTEND Hospitalist